=== PATIENT | female | born 1960 | race Caucasian/White ===

== ENCOUNTER → 2020-04-24 13:23 | Outpatient (CLI) | payer MEDICAID, SELFPAY ==
[2020-04-24 13:41] LABS: Basophils # 0.1 K/mm3 (0-0.2); Basophils % 0.8 % (0.1-2.0); Eosinophils # 0.2 K/mm3 (0.0-0.4); Hematocrit 42.6 % (37.0-47.0); Hemoglobin 14.3 g/dL (12.2-16.2); Lymphocytes # 3.5 K/mm3 (0.7-4.5); Lymphocytes % 42.1 % (10-50); Mean Corpuscular HGB Conc 33.6 g/dL (31.8-35.4); Mean Corpuscular Hemoglobin 31.5 pg (27.0-31.2); Mean Corpuscular Volume 93.9 fl (81-99); Mean Platelet Volume 8.5 fl (7.4-10.4); Monocytes # 0.5 K/mm3 (0.1-1.0); Monocytes % 6.5 % (1.7-9.3); Neutrophils % 48.5 % (37.0-80.0); Platelet Count 313 K/mm3 (142-424); Red Blood Count 4.54 M/mm3 (4.20-5.40); Red Cell Distribution Width 14.1 % (11.5-17.5); White Blood Count 8.3 K/mm3 (4.8-10.8)
[2020-04-24 14:05] LABS: Alanine Aminotransferase 29 U/L (12-78); Albumin Level 4.7 g/dl (3.5-5.0); Albumin/Globulin Ratio 1.2 (1.1-1.8); Alkaline Phosphatase 93 U/L (38-126); Anion Gap 15.1 mEq/L (5-15); Aspartate Amino Transferase 35 U/L (14-36); Bilirubin,Total 0.4 mg/dl (0.2-1.3); Blood Urea Nitrogen 20 mg/dl (7-17); Calcium 10.1 mg/dl (8.4-10.2); Carbon Dioxide 26 mmol/L (22.0-30.0); Chloride 102 mmol/L (98-107); Chol/HDL Ratio 4.9 (1-3.5); Cholesterol 317 mg/dl (140-200); Estimated Glomerular Filt Rate 74 ml/min (>60); GFR (African American) 89 ML/MIN (>60); Glucose 107 mg/dl (74-100); HDL Cholesterol 65 mg/dl (40-60); Potassium 5.1 mmoL/L (3.5-5.1); Sodium 138 mmol/L (136-145); Total Protein,Serum 8.7 g/dl (6.3-8.2); Triglycerides 313 mg/dl (30-150); VLDL Cholesterol 63 mg/dL (0-40)
[2020-04-24 14:14] LABS: Direct LDL Cholesterol 138.99 mg/dL (100-129)
[2020-04-24 14:20] LABS: T4 (Thyroxine) 7.8 ug/dl (5.53-11.0)
[2020-04-24 14:22] LABS: Phenytoin (Dilantin) < 3.0 ug/ml (10-20)
[2020-04-24 14:33] LABS: Thyroid Stimulating Hormone 3.05 uIU/mL (0.465-4.68)
[2020-04-24 17:31] LABS: Hemoglobin A1C 5.9 % (4.0-6.0)
== END ==
PROVIDERS: Visit Provider Family Medicine
DX: E11.9 Type 2 diabetes mellitus without complications (principal); G40.909 Epilepsy, unspecified, not intractable, without status epilepticus
CPT/HCPCS: 80053; 80061; 80185; 83036; 84436; 84443; 85025

== ENCOUNTER 2020-07-26 15:14 | Observation (INO) | payer MEDICAID, SELFPAY ==
--- NOTE | 2020-07-26 15:28 | PC.NURSE ---
Pt arrived to the floor at this time.
[2020-07-26 15:39] VITALS: BP 149/91; PULSE 94; RESP 18; TEMP 37.1; O2SAT 99; BMI 38.2
--- NOTE | 2020-07-26 16:11 | CT_ITS ---
PROCEDURE: CT ABDOMEN PELVIS WO/W CON CLINICAL INDICATION: abdominal pain Lower abdominal pain, vomiting blood, nausea vomiting and diarrhea COMPARISON: No exams were available for comparison TECHNIQUE: IV Contrast: 75ML Isovue 370 Oral Contrast None Axial images obtained with sagittal and coronal reformats. All CT scans at the facility use one or more dose reduction, viz: automated exposure control, ma/kV adjustment per patient size (including targeted exams where dose is matched to indication, i.e. head), or iterative reconstruction technique. FINDINGS: Motion artifact somewhat limits optimal evaluation. There is a moderate-sized hiatal hernia. There is mild thickening of the distal esophagus. Hepatic steatosis. There are some scattered areas of focal fatty sparing. No renal or ureteral calculi. There are right-sided parapelvic renal cyst. The spleen, adrenal glands, and pancreas show no acute finding. No intestinal obstruction or free air. No evidence of appendicitis or diverticulitis. Post hysterectomy change. No acute bony findings. IMPRESSION: No acute finding. Hiatal hernia Fatty liver Dictated by: Manuel Drew MD 07/27/2020 06:44 Manuel Drew MD in [facility] 07/27/2020 06:44
[2020-07-26 16:25] LABS: Adenovirus,PCR Not Detected (NotDetected); Bordetella Pertussis Not Detected (NotDetected); Chlamydophila Pneumoniae, PCR Not Detected (NotDetected); Coronavirus 19, PCR Not Detected (NotDetected); Coronavirus 229E Not Detected (NotDetected); Coronavirus NL63 Not Detected (NotDetected); Coronavirus OC43 Not Detected (NotDetected); Coronovirus HKU1,PCR Not Detected (NotDetected); Human Metapneumovirus Not Detected (NotDetected); Influenza A, PCR Not Detected (NotDetected); Influenza AH1, 2009 Not Detected (NotDetected); Influenza AH1, PCR Not Detected (NotDetected); Influenza AH3,PCR Not Detected (NotDetected); Influenza B, PCR Not Detected (NotDetected); Mycoplasma Pneumoniae, PCR Not Detected (NotDetected); Parainfluenza 1, PCR Not Detected (NotDetected); Parainfluenza 2, PCR Not Detected (NotDetected); Parainfluenza 3, PCR Not Detected (NotDetected); Parainfluenza 4, PCR Not Detected (NotDetected); Respiratory Syncytial Virus Not Detected (NotDetected); Rhinovirus/Enterovirus Not Detected (NotDetected)
[2020-07-26 16:43] LABS: Basophils # 0.1 K/mm3 (0-0.2); Basophils % 0.6 % (0.1-2.0); Eosinophils # 0.2 K/mm3 (0.0-0.4); Eosinophils % 2.2 % (0.1-12.0); Hematocrit 35.8 % (37.0-47.0); Hemoglobin 11.5 g/dL (12.2-16.2); Lymphocytes # 3.6 K/mm3 (0.7-4.5); Lymphocytes % 35.7 % (10-50); Mean Corpuscular HGB Conc 32.3 g/dL (31.8-35.4); Mean Corpuscular Hemoglobin 29.7 pg (27.0-31.2); Mean Corpuscular Volume 92.1 fl (81-99); Mean Platelet Volume 8.4 fl (7.4-10.4); Monocytes # 0.5 K/mm3 (0.1-1.0); Monocytes % 5.2 % (1.7-9.3); Neutrophils # 5.7 K/mm3 (1.8-7.8); Neutrophils % 56.2 % (37.0-80.0); Platelet Count 300 K/mm3 (142-424); Red Blood Count 3.89 M/mm3 (4.20-5.40); Red Cell Distribution Width 13.3 % (11.5-17.5); White Blood Count 10.1 K/mm3 (4.8-10.8)
[2020-07-26 16:51] LABS: Chloride 108 mmol/L (98-107); Sodium 139 mmol/L (136-145)
[2020-07-26 16:52] LABS: Potassium 4.2 mmoL/L (3.5-5.1)
[2020-07-26 16:54] LABS: Alanine Aminotransferase 29 U/L (12-78); Albumin Level 4.2 g/dl (3.5-5.0); Albumin/Globulin Ratio 1.2 (1.1-1.8); Alkaline Phosphatase 84 U/L (38-126); Anion Gap 9.2 mEq/L (5-15); Aspartate Amino Transferase 36 U/L (14-36); Bilirubin,Total 0.4 mg/dl (0.2-1.3); Blood Urea Nitrogen 16 mg/dl (7-17); Calcium 9.3 mg/dl (8.4-10.2); Carbon Dioxide 26 mmol/L (22.0-30.0); Creatinine Clearance Estimated 131 mL/min (50-200); Estimated Glomerular Filt Rate 86 ml/min (>60); GFR (African American) 104 ML/MIN (>60); Globulin 3.4 g/dL (1.3-3.2); Glucose 98 mg/dl (74-100); Lipase 53 U/L (23-300); Total Protein,Serum 7.6 g/dl (6.3-8.2)
[2020-07-26 16:57] LABS: Prothrombin Time 10.7 seconds (10.1-12.5)
--- NOTE | 2020-07-26 18:54 | PC.NURSE ---
PT IS A DIRECT ADMIT THIS SHIFT. SHE HAS HAD NO VOMITING EPISODES OR C/O ABD PAIN. CALL LIGHT WITHIN REACH. VSS. WILL CONT. TO MONITOR.
--- NOTE | 2020-07-26 19:14 | HMH.HP ---
*Admission Date: 07/26/20 *Chief complaint: abdominal pain and hemetemesis *History of present illness: Patient is a 60-year-old white female, presented to the office earlier today with a history of abdominal pain and hematemesis. She relays nausea, lower abdominal pain, worsening over the last few days. She relays a scant amount of hematemesis with vomiting. There is no melanotic or black tarry stool. She does have a history of gastric ulcers, remote. Patient's regimen includes Plavix. She was placed on this by her spring former hand, Dr. Crisostomo after work-up for a discolored toe. The ischemic discoloration has since resolved. At that point during her work-up she was also cathed. No stents were deployed. Patient has seizures, these have been quiescent. Given her degree of abdominal discomfort in the office and bleeding I elected to admit her for further evaluation. We will get a CT of the abdomen pelvis, blood count, and will ask for gastro to see her in the morning. Will keep her n.p.o. and placed on IV Protonix. [facility] History Medical History: Reports:: Asthma, Chronic Obstructive Pulmonary Disease (COPD), Coronary Artery Disease, Diabetes Mellitus Type 2, Gastroesophageal Reflux Disease(GERD), Hiatal Hernia, Hyperlipidemia, Hypertension, Myocardial Infarction, Renal Disease, Seizures Denies:: Cancer, Diabetes Mellitus Type 1, MRSA *Have you ever received a pneumonia vaccine?: No *Have you received a flu vaccine this season?: No Other Medical History: Reports: Anemia, Arthritis Laterality Cases: Bilateral: Carpal Tunnel Release Other Surgeries: Yes: Cardiac Catheterization, Colonoscopy, Hysterectomy-Partial Amputation: No - *Social History Smoking Status: Never smoker Alcohol Intake: never *Occupational Status:: unemployed Housing: house Household Members: spouse *Travel in the last 8 weeks: None Family Hx:: Diabetes, Heart Attack, Hyperlipidemia, Hypertension Review of Systems - Constitutional Reports anorexia, Reports fatigue, Reports lack of energy, Reports weakness - Eyes Denies change in vision - ENT Reports bad breath - *Cardiovascular Denies chest pain - *Respiratory Denies chest congestion - *Gastrointestinal Reports abdominal pain, Reports change in stools, Reports vomiting blood, Reports nausea, Reports vomiting, Denies bright, red blood in stools, Denies black, tarry stools - *Genitourinary Reports absent period - *Musculoskeletal Reports muscle weakness - Integumentary/Breasts Denies yellowing of the skin - *Neurologic Reports seizure-like activity, Denies abnormal speech, Denies behavioral changes - Psychiatric Denies confusion - Endocrine Denies increased thirst, Denies increased hunger - Hematologic/Lymphatic Reports easy bruising, Denies easy bleeding - Allergic/Immunologic Denies hives Meds Home Medications Medication Instructions Recorded Confirmed Type budesonide-formoterol HFA 160 2 puff INHALATION BID 04/24/20 07/26/20 History mcg-4.5 mcg/actuation aerosol inhaler clopidogrel 75 mg tablet 75 mg PO DAILY 04/24/20 07/26/20 History fluticasone furoate 200 1 inh INHALATION DAILY 04/24/20 07/26/20 History mcg-vilanterol 25 mcg/dose inhalation powder nitroglycerin 0.4 mg sublingual 0.4 mg SUBLINGUAL Q5-15M PRN 04/24/20 07/26/20 History tablet tramadol 50 mg tablet 50 mg PO DAILY PRN #30 tab 04/24/20 07/26/20 Rx Amlodipine Besylate [Amlodipine 10 mg PO DAILY 07/26/20 07/26/20 History 10mg Tab] Losartan Potassium [Cozaar 100mg 100 mg PO DAILY 07/26/20 07/26/20 History Tablets] Pantoprazole Sodium 40 mg PO DAILY 07/26/20 07/26/20 History Phenytoin Sodium Extended 100 mg PO TID 07/26/20 07/26/20 History [Dilantin] Ropinirole HCl 2 mg PO HS 07/26/20 07/26/20 History Rosuvastatin Calcium 20 mg PO HS 07/26/20 07/26/20 History levETIRAcetam [Levetiracetam] 750 mg PO BID 07/26/20 07/26/20 History Allergies Allergy/AdvReac Type Severity R
[2020-07-26 20:00] VITALS: BP 154/78; PULSE 86; RESP 20; TEMP 36.8; O2SAT 100
[2020-07-27] VITALS (11 sets, daily range): BP systolic 104–139; BP diastolic 58–79; PULSE 61–86; RESP 16–20; TEMP 36.4–36.8; O2SAT 93–99; BMI 38.5
--- NOTE | 2020-07-27 05:19 | PC.NURSE ---
Pt has rested well this shift. Has c/o pain x2 this shift. Medicated per jun. Pt has had a bed bath this AM. SHe is currently NPO. VSS. Lungs are CTA. BS active. She has tenderness to abdomen. 1+ edema noted to ankles. No other concerns. Call light within reach. Will continue to monitor.
[2020-07-27 07:50] LABS: MANUAL DIFFERENTIAL MANUAL DIFFERENTIAL (MANUAL DIFF)
[2020-07-27 07:55] LABS: Basophils # 0.1 K/mm3 (0-0.2); Basophils % 0.7 % (0.1-2.0); Eosinophils # 0.2 K/mm3 (0.0-0.4); Eosinophils % 2.5 % (0.1-12.0); Hemoglobin 11.8 g/dL (12.2-16.2); Lymphocytes # 3.2 K/mm3 (0.7-4.5); Lymphocytes % 37.3 % (10-50); Mean Corpuscular Volume 93.9 fl (81-99); Mean Platelet Volume 8.7 fl (7.4-10.4); Monocytes # 0.5 K/mm3 (0.1-1.0); Monocytes % 5.6 % (1.7-9.3); Neutrophils # 4.6 K/mm3 (1.8-7.8); Neutrophils % 53.8 % (37.0-80.0); Platelet Count 265 K/mm3 (142-424); Red Blood Count 3.94 M/mm3 (4.20-5.40); Red Cell Distribution Width 13.2 % (11.5-17.5); White Blood Count 8.5 K/mm3 (4.8-10.8)
--- NOTE | 2020-07-27 08:03 | P.CONPHA_ITS ---
[facility] Pharmacy VTE Monitoring - Patient Demographics Admission date: 07/26/20 Report Date: 07/27/20 Time: 08:03 Allergies/Adverse Reactions: Patient Allergies egg Allergy (Unknown, Verified 07/26/20 13:57) shellfish derived Allergy (Unknown, Verified 07/26/20 13:57) nut - unspecified Adverse Reaction (Severe, Verified 07/26/20 13:57) Unknown allergy reaction aspirin Adverse Reaction (Unknown, Verified 07/26/20 13:57) Penicillins Adverse Reaction (Unknown, Verified 07/26/20 13:57) Height: 1.57 m Weight: 94.801 kg Patient Problems: Current Active Problems Hematemesis (Acute) Abdominal pain (Acute) HLD (hyperlipidemia) (Chronic) Asthma (Chronic) Essential hypertension (Chronic) Seizure (Chronic) Peripheral vascular disease (Chronic) - VTE Risk Labs: VTE Related Lab Results Hgb 11.8 g/dL (12.2-16.2) L 07/27/20 06:41 Hct 37.0 % (37.0-47.0) 07/27/20 06:41 Plt Count 265 K/mm3 (142-424) 07/27/20 06:41 PT 10.7 seconds (10.1-12.5) 07/26/20 16:30 INR 0.90 (0.9-1.1) 07/26/20 16:30 BUN 16 mg/dl (7-17) 07/26/20 16:30 Creatinine 0.70 mg/dl (0.52-1.04) 07/26/20 16:30 Estimated Creat Clear 131 mL/min (50-200) 07/26/20 16:30 VTE Score: 8 VTE Risk Level: Moderate Risk - Prophylaxis VTE Prophylaxis Ordered?: Yes Types of VTE Prophylaxis: TEDS Knee High Location of Applied Device: Bilateral Lower Extremeties
[2020-07-27 08:14] LABS: Chloride 108 mmol/L (98-107); Potassium 4.2 mmoL/L (3.5-5.1); Sodium 137 mmol/L (136-145)
[2020-07-27 08:16] LABS: Alanine Aminotransferase 24 U/L (12-78); Aspartate Amino Transferase 29 U/L (14-36); Blood Urea Nitrogen 14 mg/dl (7-17); Creatinine Clearance Estimated 131 mL/min (50-200); Estimated Glomerular Filt Rate 86 ml/min (>60); GFR (African American) 104 ML/MIN (>60)
[2020-07-27 08:17] LABS: Albumin Level 3.6 g/dl (3.5-5.0); Albumin/Globulin Ratio 1.2 (1.1-1.8); Alkaline Phosphatase 80 U/L (38-126); Anion Gap 7.2 mEq/L (5-15); Bilirubin,Total 0.4 mg/dl (0.2-1.3); Calcium 8.9 mg/dl (8.4-10.2); Carbon Dioxide 26 mmol/L (22.0-30.0); Glucose 105 mg/dl (74-100); Total Protein,Serum 6.6 g/dl (6.3-8.2)
[2020-07-27 08:59] LABS: Eosinophils % 2 % (0-3); Lymphocytes % 34 % (10-50); Monocytes % 5 % (2-9); Neutrophils % 59 % (42-76); Platelet Estimate Normal; RBC Morphology Normal; Total Cells Counted 100
--- NOTE | 2020-07-27 10:43 | HMH.PHAINT ---
MEDICATION RECONCILIATION COMPLETED USING PHYSICIAN OFFICE LIST
--- NOTE | 2020-07-27 13:02 | PC.NURSE ---
Pt down to surgery at this time for EGD.
--- NOTE | 2020-07-27 13:52 | HMH.PROC ---
[facility] Procedure Note Procedure Note:: Upper Endoscopy Procedure Report: Esophagogastroduodenoscopy with cold biopsies Endoscopost: Misha Alejandre II, MD Referring Physician: Clif Portillo MD Date of Procedure: July 27, 2020 Equipment: Olympus GIF 190 standard upper endoscope Sedation: MAC sedation Indications: Mrs. Tena is a 60-year-old female with hematemesis since Thursday (3 days ago). The patient reports some epigastric and lower abdominal pain and discomfort with bloating. She has had nausea and vomiting. She was taking Plavix. She is a diabetic. She reports no use of NSAIDs. She has had no melena or hematochezia. She has no history of liver disease. Her hemoglobin and hematocrit yesterday were 11.[address] scan of the abdomen yesterday showed a moderate sized hiatal hernia and some thickening of the distal esophagus. EGD is performed for further evaluation. Procedure: Prior to the procedure, a history and physical exam was performed, and patient's medications and allergies were reviewed. The risks, benefits and alternatives of the sedation and procedure were discussed with the patient. All questions were answered and informed consent was obtained. The patient was brought to the procedure room. Patient identification and proposed procedure were verified by the physician and the nurse. The patient was placed in a left lateral decubitus position and the scope was passed under direct vision. Throughout the procedure, the patient's blood pressure, pulse, and oxygen saturations were monitored continuously. The upper GI endoscopy was accomplished without difficulty. The patient tolerated the procedure well. Findings: The scope was passed directly into the upper esophagus and advanced to the third portion of the duodenum. The post bulbar duodenum and duodenal bulb were normal with normal mucosa and conniventes. The scope was withdrawn through a normal duodenal bulb and pylorus into the stomach. There was some mild linear reactive gastropathy of the antrum and body of the stomach. Cold biopsies were obtained from the antrum and lesser curvature. There was very mild gastritis of the body and fundus. Upon retroflexion there was a moderate sized 4 to 5 cm hiatal hernia with linear Derrick's erosions. The scope was then withdrawn into the esophagus. There appeared to be a healing Fariha-Salmon tear along the lesser curvature near the GE junction. There was no evidence of reflux esophagitis or Aquino's. There were tertiary contractions and evidence of moderate esophageal dysmotility. The remainder of the esophageal mucosa was normal. Impression: 1. Healing Fariha-Salmon tear 2. Moderate sized hiatal hernia (4 to 5 cm) with linear Derrick's erosions 3. Nonerosive GERD with moderate esophageal dysmotility 4. Mild reactive gastropathy and mild chronic gastritis Plan: I will follow-up the biopsies. 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 I would consider adding promotility therapy (metoclopramide) to her PPI therapy. I will begin to advance her diet.
--- NOTE | 2020-07-27 14:18 | HMH.DCSUM ---
General - General Admission date:: 07/26/20 Discharge date: 07/27/20 HPI HPI: Patient is a 60-year-old white female, presented to the office earlier today with a history of abdominal pain and hematemesis. She relays nausea, lower abdominal pain, worsening over the last few days. She relays a scant amount of hematemesis with vomiting. There is no melanotic or black tarry stool. She does have a history of gastric ulcers, remote. Patient's regimen includes Plavix. She was placed on this by her senior environmental scientist, Dr. Crisostomo after work-up for a discolored toe. The ischemic discoloration has since resolved. At that point during her work-up she was also cathed. No stents were deployed. Patient has seizures, these have been quiescent. Given her degree of abdominal discomfort in the office and bleeding I elected to admit her for further evaluation. We will get a CT of the abdomen pelvis, blood count, and will ask for gastro to see her in the morning. Will keep her n.p.o. and placed on IV Protonix. Hospital Course Hospital Course: Laboratory Tests 07/26/20 07/26/20 07/26/20 16:20 16:30 16:30 WBC 10.1 RBC 3.89 L Hgb 11.5 L Hct 35.8 L MCV 92.1 MCH 29.7 MCHC 32.3 RDW 13.3 Plt Count 300 MPV 8.4 Neut % (Auto) 56.2 Lymph % (Auto) 35.7 [place] % (Auto) 5.2 Eos % (Auto) 2.2 Baso % (Auto) 0.6 Neut # (Auto) 5.7 Lymph # (Auto) 3.6 [place] # (Auto) 0.5 Eos # (Auto) 0.2 Baso # (Auto) 0.1 Total Counted Neutrophils % (Manual) Lymphocytes % (Manual) Monocytes % (Manual) Eosinophils % (Manual) Platelet Estimate RBC Morphology PT 10.7 INR 0.90 Sodium Potassium Chloride Carbon Dioxide Anion Gap BUN Creatinine Estimated Creat Clear Estimated GFR Est GFR ( Amer) Glucose Calcium Total Bilirubin AST ALT Alkaline Phosphatase Total Protein Albumin Globulin Albumin/Globulin Ratio Lipase Chlamy pneumoniae PCR Not detected Adenovirus (PCR) Not detected B. pertussis DNA (PCR) Not detected Coronavirus OC43 (PCR) Not detected Coronavirus HKU1 (PCR) Not detected Coronavirus 229E (PCR) Not detected SARS-CoV-2 (PCR) Not detected Coronavirus NL63 (PCR) Not detected Human Metapneumovir PCR Not detected Influenza A (H1) PCR Not detected Influ A (H1N1/09) PCR Not detected Influenza A (H3) PCR Not detected Influenza Type A (PCR) Not detected Influenza Type B (PCR) Not detected M. pneumoniae (PCR) Not detected Parainfluenza 1 (PCR) Not detected Parainfluenza 2 (PCR) Not detected Parainfluenza 3 (PCR) Not detected Parainfluenza 4 (PCR) Not detected RSV (PCR) Not detected Entero/Rhino (PCR) Not detected 07/26/20 07/27/20 07/27/20 16:30 06:41 06:41 WBC 8.5 RBC 3.94 L Hgb 11.8 L Hct 37.0 MCV 93.9 MCH 30.0 MCHC 32.0 RDW 13.2 Plt Count 265 MPV 8.7 Neut % (Auto) 53.8 Lymph % (Auto) 37.3 [place] % (Auto) 5.6 Eos % (Auto) 2.5 Baso % (Auto) 0.7 Neut # (Auto) 4.6 Lymph # (Auto) 3.2 [place] # (Auto) 0.5 Eos # (Auto) 0.2 Baso # (Auto) 0.1 Total Counted 100 Neutrophils % (Manual) 59 Lymphocytes % (Manual) 34 Monocytes % (Manual) 5 Eosinophils % (Manual) 2 Platelet Estimate Normal RBC Morphology Normal PT INR Sodium 139 137 Potassium 4.2 4.2 Chloride 108 H 108 H Carbon Dioxide 26 26 Anion Gap 9.2 7.2 BUN 16 14 Creatinine 0.70 0.70 Estimated Creat Clear 131 131 Estimated GFR 86 86 Est GFR ( Amer) 104 104 Glucose 98 105 H Calcium 9.3 8.9 Total Bilirubin 0.4 0.4 AST 36 29 ALT 29 24 Alkaline Phosphatase 84 80 Total Protein 7.6 6.6 Albumin 4.2 3.6 D Globulin 3.4 H 3.0 Albumin/Globulin Ratio 1.2 1.2 Lipase 53 Chlamy pneumoniae PCR Adenovirus (PCR)
--- NOTE | 2020-07-27 15:00 | HMH.ANESCL ---
[facility] Anesthesia Checklist - Structural Data Admitted From: Inpatient Planned Operative Procedure/s: egd Consent for Planned Operative Procedure(s) Verified: Yes - Airway Assessment C-Spine Mobility Assessed: Yes TMJ Mobility Assessed: Yes Dentition: Poor Dentition - Neurological Assessment Level of Consciousness: Awake, Alert, Appropriate - Anesthesia Plan Anesthesia Risk discussed: Yes Anesthesia Plan: Verified ASA Class: III Anesthesia Type: MAC [facility] History I have reviewed the patient's past medical history: Yes Medical History: Reports:: Asthma, Chronic Obstructive Pulmonary Disease (COPD), Coronary Artery Disease, Diabetes Mellitus Type 2, Gastroesophageal Reflux Disease(GERD), Hiatal Hernia, Hyperlipidemia, Hypertension, Myocardial Infarction, Renal Disease, Seizures Denies:: Cancer, Diabetes Mellitus Type 1, MRSA *Have you ever received a pneumonia vaccine?: No *Have you received a flu vaccine this season?: No Other Medical History: Reports: Anemia, Arthritis Anesthesia experience/problems:: none Laterality Cases: Bilateral: Carpal Tunnel Release Other Surgeries: Yes: Cardiac Catheterization, Colonoscopy, Hysterectomy-Partial Amputation: No - *Social History Smoking Status: Never smoker Alcohol Intake: never Substance Use Type: denies use *Occupational Status:: unemployed Housing: house Household Members: spouse *Travel in the last 8 weeks: None Family Hx:: Diabetes, Heart Attack, Hyperlipidemia, Hypertension
== END 2020-07-27 16:30 | disposition home or self-care (01) ==
PROVIDERS: Internal Medicine Gastroenterology; Admitting Provider Family Medicine; PCP Family Medicine; Visit Provider Family Medicine
PROC: 0DJ08ZZ Inspection of Upper Intestinal Tract, Via Natural or Artificial Opening Endoscopic (ICD-10-PCS; CPT 43235; principal; 2020-07-27 14:00)
DX: K92.0 Hematemesis (principal); R10.30 Lower abdominal pain, unspecified; I10 Essential (primary) hypertension; E78.5 Hyperlipidemia, unspecified; K21.9 Gastro-esophageal reflux disease without esophagitis; E11.9 Type 2 diabetes mellitus without complications; I25.10 Atherosclerotic heart disease of native coronary artery without angina pectoris; J44.9 Chronic obstructive pulmonary disease, unspecified; I25.2 Old myocardial infarction; M19.90 Unspecified osteoarthritis, unspecified site; Z88.6 Allergy status to analgesic agent; Z91.012 Allergy to eggs; Z88.0 Allergy status to penicillin; Z91.013 Allergy to seafood; I73.9 Peripheral vascular disease, unspecified; R56.9 Unspecified convulsions; K22.6 Gastro-esophageal laceration-hemorrhage syndrome; K44.9 Diaphragmatic hernia without obstruction or gangrene; K31.9 Disease of stomach and duodenum, unspecified; K29.50 Unspecified chronic gastritis without bleeding
CPT/HCPCS: 43239; 36415; 74178; 80053; 83690; 85007; 85014; 85018; 85025; 85048; 85049; 85610; 87581; 87633; 87798; G0378; J2405; Q9967

== ENCOUNTER → 2020-07-26 17:20 | Outpatient (CLI) | payer MEDICAID, SELFPAY | PROVIDERS: Visit Provider Family Medicine | DX: M54.9 Dorsalgia, unspecified (principal) | CPT/HCPCS: 87086 ==

== ENCOUNTER → 2020-12-07 09:02 | Outpatient (CLI) | payer MEDICAID, SELFPAY ==
--- NOTE | 2020-12-07 09:11 | MR_ITS ---
PROCEDURE: MR HEAD/BRAIN WO/W CON CLINICAL INDICATION: Recurrent test seizures COMPARISON: No exams were available for comparison TECHNIQUE: Routine multiplanar multi echo sequences are performed without and with gadolinium enhancement. FINDINGS: No midline shift, mass effect, intracranial hemorrhage, or hydrocephalus. The cerebellopontine angles, cerebellum, and brainstem have an unremarkable appearance. There is no evidence of restricted diffusion. No evidence of acute infarction. The hemicranium has a asymmetric appearance somewhat flattened on the left posteriorly. No abnormal white matter signal intensity. No enhancing lesions are evident. The hippocampal gyri are unremarkable in the temporal horns are symmetric. The pituitary, optic chiasm, corpus callosum, and craniocervical junction have an unremarkable appearance. Mild mucosal thickening involves the floor of the left maxillary sinus. There is a small amount fluid in the mastoid sinuses IMPRESSION: No acute intracranial findings. Slight asymmetry in the left hemicranium Mild bilateral mastoid sinus disease Dictated by: Manuel Drew MD 12/07/2020 13:39 Manuel Drew MD in [place] 12/07/2020 13:39
[2020-12-07 09:39] LABS: Basophils # 0.1 K/mm3 (0-0.2); Basophils % 1.4 % (0.1-2.0); Eosinophils # 0.3 K/mm3 (0.0-0.4); Hematocrit 39.6 % (37.0-47.0); Lymphocytes # 4.4 K/mm3 (0.7-4.5); Lymphocytes % 49.8 % (10-50); Mean Corpuscular HGB Conc 32.7 g/dL (31.8-35.4); Mean Corpuscular Hemoglobin 29.4 pg (27.0-31.2); Mean Platelet Volume 9.6 fl (7.4-10.4); Monocytes # 0.5 K/mm3 (0.1-1.0); Monocytes % 5.2 % (1.7-9.3); Neutrophils # 3.6 K/mm3 (1.8-7.8); Neutrophils % 40.6 % (37.0-80.0); Platelet Count 302 K/mm3 (142-424); Red Cell Distribution Width 13.9 % (11.5-17.5); White Blood Count 8.8 K/mm3 (4.8-10.8)
[2020-12-07 09:47] LABS: Chloride 106 mmol/L (98-107); Sodium 142 mmol/L (136-145)
[2020-12-07 09:50] LABS: Blood Urea Nitrogen 16 mg/dl (7-17); Calcium 8.9 mg/dl (8.4-10.2); Carbon Dioxide 27 mmol/L (22.0-30.0); Estimated Glomerular Filt Rate 86 ml/min (>60); GFR (African American) 104 ML/MIN (>60); Glucose 113 mg/dl (74-100)
[2020-12-07 10:26] LABS: Ferritin 21.8 ng/ml (11.1-264)
[2020-12-07 10:49] LABS: Phenytoin (Dilantin) < 3.0 ug/ml (10-20)
== END ==
PROVIDERS: PCP Family Medicine; Visit Provider Specialist
DX: G40.909 Epilepsy, unspecified, not intractable, without status epilepticus (principal); G25.81 Restless legs syndrome; Z51.81 Encounter for therapeutic drug level monitoring
CPT/HCPCS: 36415; 70553; 80048; 80177; 80185; 82728; 85025; 95816; A9576

== ENCOUNTER 2021-02-06 18:34 | Emergency (ER) | payer MEDICAID, SELFPAY ==
[2021-02-06 18:35] VITALS: BP 160/84; PULSE 104; RESP 16; TEMP 36.6; O2SAT 99; BMI 38.9
[2021-02-06 20:09] LABS: Basophils # 0.1 K/mm3 (0-0.2); Basophils % 0.8 % (0.1-2.0); Eosinophils # 0.2 K/mm3 (0.0-0.4); Eosinophils % 1.3 % (0.1-12.0); Hematocrit 42.7 % (37.0-47.0); Hemoglobin 13.4 g/dL (12.2-16.2); Lymphocytes # 4.7 K/mm3 (0.7-4.5); Lymphocytes % 41.5 % (10-50); Mean Corpuscular HGB Conc 31.3 g/dL (31.8-35.4); Mean Corpuscular Hemoglobin 30.1 pg (27.0-31.2); Mean Corpuscular Volume 96.1 fl (81-99); Mean Platelet Volume 8.2 fl (7.4-10.4); Monocytes # 0.6 K/mm3 (0.1-1.0); Monocytes % 5.4 % (1.7-9.3); Neutrophils # 5.8 K/mm3 (1.8-7.8); Platelet Count 370 K/mm3 (142-424); Red Blood Count 4.44 M/mm3 (4.20-5.40); Red Cell Distribution Width 13.6 % (11.5-17.5); White Blood Count 11.4 K/mm3 (4.8-10.8)
[2021-02-06 20:14] LABS: Chloride 104 mmol/L (98-107); Sodium 140 mmol/L (136-145)
[2021-02-06 20:17] LABS: Alanine Aminotransferase 22 U/L (12-78); Alkaline Phosphatase 104 U/L (38-126); Amylase 61 U/L (30-110); Aspartate Amino Transferase 31 U/L (14-36); Bilirubin,Total 0.2 mg/dl (0.2-1.3); Blood Urea Nitrogen 17 mg/dl (7-17); Carbon Dioxide 27 mmol/L (22.0-30.0); Creatinine Clearance Estimated 134 mL/min (50-200); Estimated Glomerular Filt Rate 86 ml/min (>60); GFR (African American) 104 ML/MIN (>60)
[2021-02-06 20:18] LABS: Albumin Level 4.4 g/dl (3.5-5.0); Albumin/Globulin Ratio 1.1 (1.1-1.8); Calcium 9.5 mg/dl (8.4-10.2); Globulin 4.1 g/dL (1.3-3.2); Glucose 98 mg/dl (74-100); Lipase 89 U/L (23-300); Total Protein,Serum 8.5 g/dl (6.3-8.2)
[2021-02-06 20:23] LABS: C-Reactive Protein 6.9 mg/L (0-4)
--- NOTE | 2021-02-06 20:24 | CT_ITS ---
PROCEDURE INFORMATION: Exam: CT Abdomen And Pelvis With Contrast Exam date and time: 02/06/2021 8:24 PM Age: 60 years old Clinical indication: Patient HX: PT has known hiatal hernia, vomiting for 1 day, pain in area of hernia TECHNIQUE: Imaging protocol: Computed tomography of the abdomen and pelvis with contrast. Radiation optimization: All CT scans at this facility use at least one of these dose optimization techniques: automated exposure control; mA and/or kV adjustment per patient size (includes targeted exams where dose is matched to clinical indication); or iterative reconstruction. Contrast material: ISOVUE; Contrast volume: 75 ml; Contrast route: IV; COMPARISON: CT ABDOMEN PELVIS WO/W CON 07/26/2020 7:43 PM FINDINGS: Lungs: No mass/infiltrate at either lung base. No pleural effusion. Liver: Mild hepatomegaly. There is diminished attenuation throughout the substance of the liver, compatible with hepatic steatosis. No evidence of a patent mass. No intrahepatic biliary dilitation. No changes since 07/26/2020. Gallbladder and bile ducts: The gallbladder is surgically absent. No evidence of extrahepatic biliary dilatation. Pancreas: Normal. No ductal dilation. Spleen: Normal. No splenomegaly. Adrenal glands: Normal. No mass. Kidneys and ureters: Normal. No hydronephrosis. Stomach and bowel: Again, there is a moderate to large hiatal hernia. Overall size of the hernia is not appreciably changed when compared with prior examination, taking into account differences in technique. No obstruction. No mucosal thickening. Small bowel mesentery is normal. Appendix: Unremarkable. Intraperitoneal space: Unremarkable. No free air. No significant fluid collection. Vasculature: Atheromatous calcification of the aorta and iliac arteries. No abdominal aortic aneurysm. Lymph nodes: Unremarkable. No enlarged lymph nodes. Urinary bladder: Unremarkable as visualized. Reproductive: Hysterectomy has been performed. Bones/joints: There are degenerative changes noted within the lumbar spine. No acute fracture. Soft tissues: Unremarkable. IMPRESSION: 1. Overall size of the moderate to large hiatal hernia is unchanged when compared with prior examination of 07/26/2020. 2. Cholecystectomy and hysterectomy has been performed. 3. Hepatic steatosis again identified. 4. No evidence of acute process within the abdomen or pelvis.
[2021-02-06 20:47] LABS: Erythrocyte Sedimentation Rate 14 mm/hr (0-30)
--- NOTE | 2021-02-06 21:25 | HMH.EDNVD ---
ED Disposition Clinical Impression: Hiatal hernia Hematemesis Qualifiers: Nausea presence: with nausea Qualified Code(s): K92.0 - Hematemesis Disposition: Home, Self-Care Condition on Discharge: Good Instructions: DI for Nausea -- Adult Additional Instructions: see pcp for follow up and return as needed Referrals: Gavin Portillo MD [Primary Care Provider] - - Critical Care Critical Care Time: No Attestation: On 02/06/21, the high probability of a clinically significant, sudden or life threatening deterioration of the following system(s) required my full and direct attention, intervention and personal management. The time I documented below is in addition to time spent performing reported procedures but includes the following listed in this critical care notation. Medical Decision Making - Medical Records Medical records reviewed: Yes: I reviewed the patient's medical records. - Mukesh Inquiry Pt receiving controlled substance: No Vital Signs: 02/06/21 18:35 Temperature 97.9 F Temperature Source Oral Pulse Rate [Left] 104 H Respiratory Rate 16 Blood Pressure [Right Arm] 160/84 H Blood Pressure Mean [Right Arm] 109 02 Sat by Pulse Oximetry 99 Oxygen Delivery Method Room Air - Lab Data Lab results reviewed: Yes: I reviewed the patient's lab results. Lab Results 02/06/21 19:42: WBC 11.4 H, RBC 4.44, Hgb 13.4, Hct 42.7, MCV 96.1, MCH 30.1, MCHC 31.3 L, RDW 13.6, Plt Count 370, MPV 8.2, Neut % (Auto) 51.0, Lymph % (Auto) 41.5, [place] % (Auto) 5.4, Eos % (Auto) 1.3, Baso % (Auto) 0.8, Neut # (Auto) 5.8, Lymph # (Auto) 4.7 H, [place] # (Auto) 0.6, Eos # (Auto) 0.2, Baso # (Auto) 0.1, ESR 14 02/06/21 19:42: Sodium 140, Potassium 4.0, Chloride 104, Carbon Dioxide 27, Anion Gap 13.0, BUN 17, Creatinine 0.70, Estimated Creat Clear 134, Estimated GFR 86, Est GFR ( Amer) 104, Glucose 98, Calcium 9.5, Total Bilirubin 0.2, AST 31, ALT 22, Alkaline Phosphatase 104, C-Reactive Protein 6.9 H, Total Protein 8.5 H D, Albumin 4.4, Globulin 4.1 H, Albumin/Globulin Ratio 1.1, Amylase 61, Lipase 89 Result diagrams: 02/06/21 19:42 02/06/21 19:42 Orders (Tests/Meds): ED MEDICATIONS Generic Name Dose Route Start Last Admin Trade Name Freq PRN Reason Stop Dose Admin Sodium Chloride 1,000 mls @ 999 mls/hr 02/06/21 20:00 02/06/21 20:05 Sod Chlor 0.9% 1000ml Bag IV 02/06/21 21:00 999 mls/hr .Q1H1M CHEPE Administration Discontinued Medications Generic Name Dose Route Start Last Admin Trade Name Freq PRN Reason Stop Dose Admin Pantoprazole Sodium 80 mg/ 100 mls @ 100 mls/hr 02/06/21 19:58 02/06/21 20:05 Sodium Chloride IV 02/06/21 20:57 100 mls/hr ONCE ONE Administration Iopamidol 75 ml 02/06/21 20:46 02/06/21 20:47 Iopamidol-370 (76%);100ml Bottle IV 02/06/21 20:47 75 ml ONCE ONE Administration Ondansetron HCl 4 mg 02/06/21 19:58 02/06/21 20:05 Ondansetron 4mg/2ml Vial IV 02/06/21 19:59 4 mg ONCE ONE Administration Sodium Chloride 10 ml 02/06/21 20:46 02/06/21 20:47 Sodium Chloride 0.9% 10ml Syr (Rad Only) IV 02/06/21 20:47 10 ml ONCE ONE Administration ORDERS Category Date Time Status Occult Blood,Gastric Fluid Stat Lab 02/06/21 19:55 Ordered Urinalysis and Microscopic Stat Lab 02/06/21 19:55 Ordered - CT Data CT Scan: Abdomen, Pelvis Time Received: 22:[address] Reviewed: Yes: I have viewed the radiologist's interpretation Preliminary Findings: Abnormal (see report ) Medical Decision Narrative: stable exam and labs with hx of recent issue sin 08/08 Nausea/Vomiting/Diarrhea HPI - General Chief complaint: Nausea/Vomiting/Diarrhea Stated complaint: vomiting blood Time Seen by Provider: 02/06/21 20:00 Mode of Arrival: Family Vehicle Source of Information: Patient, Medical Record Limitations: No Limitations Description of Symptoms (Recalled from ER Triage Doc. by RN): pt has a hx of hernia causing vomiting. today pt states to have luz
[2021-02-06 22:09] VITALS: BP 160/84; PULSE 89; RESP 16; TEMP 36.6
== END 2021-02-06 22:17 | disposition home or self-care (01) ==
PROVIDERS: Emergency Provider Emergency Medicine; PCP Family Medicine
DX: K44.9 Diaphragmatic hernia without obstruction or gangrene (principal); R10.13 Epigastric pain; I25.10 Atherosclerotic heart disease of native coronary artery without angina pectoris; J44.9 Chronic obstructive pulmonary disease, unspecified; I10 Essential (primary) hypertension; E11.9 Type 2 diabetes mellitus without complications; K21.9 Gastro-esophageal reflux disease without esophagitis; I25.2 Old myocardial infarction; K92.0 Hematemesis
CPT/HCPCS: 74177; 80053; 82150; 83690; 85025; 85651; 86140; 99282; J2405; Q9967

== ENCOUNTER → 2022-04-16 14:44 | Outpatient (CLI) | payer MEDICAID, SELFPAY ==
--- NOTE | 2022-04-16 14:50 | XR_ITS ---
FINAL REPORT CLINICAL HISTORY: SOA FINDINGS: TWO-VIEW CHEST The heart size is normal. The mediastinum is normal. There is bronchial wall thickening consistent with bronchitis. Small hiatal hernia is identified. There is no pneumothorax. IMPRESSION: Findings consistent with bronchitis. Reviewed, Interpreted and Dictated by Scott Alfonso III, MD Transcribed by Rowena Agarwal Authenticated and . [facility]
== END ==
PROVIDERS: PCP Family Medicine; Visit Provider Nurse Practitioner Family
DX: R06.02 Shortness of breath (principal)
CPT/HCPCS: 71046

== ENCOUNTER → 2022-06-03 23:33 | Outpatient (CLI) | payer MEDICAID, SELFPAY ==
[2022-06-03 20:06] LABS: Anion Gap 12.5 mEq/L (5-15); Blood Urea Nitrogen 19 mg/dl (7-17); Carbon Dioxide 23 mmol/L (22.0-30.0); Chloride 106 mmol/L (98-107); Estimated Glomerular Filt Rate 64 ml/min (>60); GFR (African American) 78 ML/MIN (>60); Glucose 97 mg/dl (74-100); Potassium 4.5 mmoL/L (3.5-5.1); Sodium 137 mmol/L (136-145)
== END ==
PROVIDERS: PCP Family Medicine; Visit Provider Family Medicine
DX: K92.0 Hematemesis (principal)
CPT/HCPCS: 80048

== ENCOUNTER → 2022-07-04 22:29 | Outpatient (CLI) | payer MEDICAID, SELFPAY ==
[2022-07-04 18:34] LABS: Basophils # 0.1 K/mm3 (0-0.2); Basophils % 0.9 % (0.1-2.0); Eosinophils # 0.2 K/mm3 (0.0-0.4); Eosinophils % 1.9 % (0.1-12.0); Hematocrit 41.4 % (37.0-47.0); Hemoglobin 13.9 g/dL (12.2-16.2); Lymphocytes # 4.2 K/mm3 (0.7-4.5); Lymphocytes % 42.7 % (10-50); Mean Corpuscular HGB Conc 33.6 g/dL (31.8-35.4); Mean Corpuscular Hemoglobin 31.2 pg (27.0-31.2); Mean Corpuscular Volume 92.9 fl (81-99); Mean Platelet Volume 10.3 fl (7.4-10.4); Monocytes # 0.6 K/mm3 (0.1-1.0); Monocytes % 5.9 % (1.7-9.3); Neutrophils # 4.7 K/mm3 (1.8-7.8); Neutrophils % 48.5 % (37.0-80.0); Platelet Count 430 K/mm3 (142-424); Red Blood Count 4.46 M/mm3 (4.20-5.40); Red Cell Distribution Width 13.9 % (11.5-17.5); White Blood Count 9.8 K/mm3 (4.8-10.8)
[2022-07-04 18:51] LABS: Alanine Aminotransferase 23 U/L (12-78); Albumin Level 4.2 g/dl (3.5-5.0); Albumin/Globulin Ratio 1.3 (1.1-1.8); Alkaline Phosphatase 72 U/L (38-126); Anion Gap 13.8 mEq/L (5-15); Aspartate Amino Transferase 29 U/L (14-36); Bilirubin,Total 0.5 mg/dl (0.2-1.3); Blood Urea Nitrogen 17 mg/dl (7-17); Calcium 8.9 mg/dl (8.4-10.2); Carbon Dioxide 23 mmol/L (22.0-30.0); Chloride 103 mmol/L (98-107); Chol/HDL Ratio 5.2 (1-3.5); Cholesterol 287 mg/dl (140-200); Estimated Glomerular Filt Rate 64 ml/min (>60); GFR (African American) 77 ML/MIN (>60); Globulin 3.2 g/dL (1.3-3.2); Glucose 75 mg/dl (74-100); HDL Cholesterol 55 mg/dl (40-60); Potassium 4.8 mmoL/L (3.5-5.1); Sodium 135 mmol/L (136-145); Total Protein,Serum 7.4 g/dl (6.3-8.2); Triglycerides 340 mg/dl (30-150); VLDL Cholesterol 68 mg/dL (0-40)
[2022-07-04 18:53] LABS: Phenytoin (Dilantin) < 3.0 ug/ml (10-20)
[2022-07-04 19:00] LABS: Direct LDL Cholesterol 153.64 mg/dL (100-129)
[2022-07-04 19:21] LABS: Thyroid Stimulating Hormone 3.71 uIU/mL (0.465-4.68)
[2022-07-04 21:41] LABS: Hemoglobin A1C 5.9 % (4.0-6.0)
== END ==
PROVIDERS: PCP Family Medicine; Visit Provider Family Medicine
DX: E78.5 Hyperlipidemia, unspecified (principal); I10 Essential (primary) hypertension; R56.9 Unspecified convulsions; Z79.899 Other long term (current) drug therapy
CPT/HCPCS: 80053; 80061; 80185; 83036; 84443; 85025

== ENCOUNTER → 2022-10-27 23:34 | Outpatient (CLI) | payer MEDICAID, SELFPAY ==
[2022-10-27 19:27] LABS: Basophils # 0.1 K/mm3 (0-0.2); Basophils % 0.5 % (0.1-2.0); Eosinophils # 0.2 K/mm3 (0.0-0.4); Eosinophils % 1.7 % (0.1-12.0); Hematocrit 40.2 % (37.0-47.0); Hemoglobin 12.5 g/dL (12.2-16.2); Lymphocytes # 3.4 K/mm3 (0.7-4.5); Lymphocytes % 37.1 % (10-50); Mean Corpuscular HGB Conc 31.1 g/dL (31.8-35.4); Mean Corpuscular Hemoglobin 27.9 pg (27.0-31.2); Mean Corpuscular Volume 89.6 fl (81-99); Mean Platelet Volume 9.7 fl (7.4-10.4); Monocytes # 0.6 K/mm3 (0.1-1.0); Monocytes % 6.5 % (1.7-9.3); Neutrophils % 54.2 % (37.0-80.0); Platelet Count 417 K/mm3 (142-424); Red Blood Count 4.49 M/mm3 (4.20-5.40); Red Cell Distribution Width 14.4 % (11.5-17.5); White Blood Count 9.2 K/mm3 (4.8-10.8)
== END ==
PROVIDERS: PCP Family Medicine; Visit Provider Family Medicine
DX: K92.0 Hematemesis (principal)
CPT/HCPCS: 85025

== ENCOUNTER → 2022-12-02 10:23 | Outpatient (CLI) | payer MEDICAID, SELFPAY ==
--- NOTE | 2022-12-02 10:30 | CA_ITS ---
APPROVED REPORT Exam: Pharmacologic Technologist: Negrita Price, Ht: 5 ft 2 in Wt: 212 lbs BSA: 1.96 m2 HR: 80 bpm BP: 154/78 mmHg Rhythm: NSR Medical History Medications: Amlodipine,,,,, Phenytoin,,,,, Losartan,,,,, Pantoprazole,,,,, Duoneb,,,,, Ropinirole,,,,, SyMBICORT,,,,, Albuterol,,,,, KEPPRA,,,,, Nitroglycerin,,,,, CompAZINE,,,,, RoSUVASTATIN,,,,, Stress Test Details Test: LEXISCAN Reason for pharmacologic stress test: physical limitation. HR Resting HR: 80 bpm Max Heart Rate (APMHR): 160 bpm Max HR Achieved: 120 bpm Target HR (85% APMHR): 136 bpm % of APMHR: 75 Recovery HR: 106 bpm BP Resting BP: 154.0/78.0 mmHg Max BP: 158.0/89.0 mmHg Recovery BP: 157.0/73.0 mmHg ECG Resting ECG: Normal sinus rhythm Stress ECG: T wave changes in the inferolateral leads Arrhythmia: PVCs Clinical Exercise duration: 04:01 min Highest Stage Achieved: Exercise capacity: 1.0 METs Stress ECG Conclusion Symptoms: Dyspnea, chest pressure. Arrhythmias/Ectopy: PVCs ST-T Changes: New T-wave changes noted in the inferolateral leads following Lexiscan administration Conclusion: Lexiscan stress test suggestive of possible ischemia. Myoview images are reported separately. Test Summary REST . . . . . . . Resting REST 05:19 . . 80 . 154/ 78 . . Stage 1 . . . . . . . Myoview Injected Stage 1 01:00 . . 119 . . . . Stage 2 01:00 . . 119 . . . . Stage 3 01:00 . . 114 . 158/ 89 . . Stage 4 01:00 . . 111 . 147/ 81 . . Stage 4 01:01 . . 111 . 147/ 81 . Stop exercise at 04:01 RECOVERY 01:00 . . 109 . . . . RECOVERY 02:00 . . 106 . 146/ 83 . . RECOVERY 03:00 . . 105 . 146/ 83 . . RECOVERY 03:37 . . 108 . 157/ 73 . . Electronically signed by : Lottie Black, 12/02/2022 19:08:59
--- NOTE | 2022-12-02 10:30 | NM_ITS ---
APPROVED REPORT Exam: Nuclear Stress Test Indication: HTN, DM, HYPERLIPIDEMIA, FM HX., C.P., SOB, PALPITATIONS, SYNCOPE, FATIGUE Patient Location: Outpatient Stress Tech: Negrita Bradshaw [facility] Tech:Latoya Harrison, ARRT RT (R)(N)(M) Ht: 5 ft 2 in Wt: 212 lbs Bra Size: DD HR: 80 bpm BP: 154/78 mmHg BSA: 1.96 m2 Rhythm: NSR TID: 0.88 BMI: 38.7 History: HTN, DM, HYPERLIPIDEMIA, FM HX., C.P., SOB, PALPITATIONS, SYNCOPE, FATIGUE Procedure: Patient received 0.4 mg of intravenous Lexiscan, resting heart rate 80 bpm, resting blood pressure 154/78 mmHg, with Lexiscan maximum heart rate achieved was 118 bpm which is % of the maximum predicted heart rate and blood pressure was 158/89 mmHg. CHEST PRESSURE WITH LEXISCAN Cardiac Stress and Resting SPECT Images: Cardiac Stress and Resting SPECT images were obtained using technetium 99m Myoview 31.6 mCi stress and 10.65 mCi at rest. Resting and stress imaging in supine and prone positions demonstrate no evidence of fixed or reversible perfusion defects. Gated imaging demonstrates normal global and regional LV systolic function. LVEF is calculated at > 75% Conclusion: No evidence of fixed or reversible perfusion defects. Gated imaging demonstrates normal global and regional LV systolic function. LVEF is calculated at > 75% Electronically signed by : Lottie Black, 12/02/2022 19:10:25
== END ==
PROVIDERS: PCP Family Medicine; Visit Provider Family Medicine
DX: R06.02 Shortness of breath (principal); R07.89 Other chest pain
CPT/HCPCS: 78452; 93017; A9502; J2785

== ENCOUNTER 2022-12-10 08:55 | Day surgery (SDC) | payer MEDICAID, SELFPAY ==
[2022-11-21 10:08] VITALS: BMI 39.1
[2022-12-10] VITALS (7 sets, daily range): BP systolic 107–154; BP diastolic 74–95; PULSE 65–85; RESP 18; TEMP 36.1–36.3; O2SAT 96–99
--- NOTE | 2022-12-10 10:28 | P.PNANES_ITS ---
[facility] Disclaimer: The information contained in this section may have been updated after the patient was seen, as this information can be updated by other users. Medical History Carpal tunnel syndrome History of nausea Hypertension Seizure disorder Surgical History History of carpal tunnel release of both wrists History of foot operation History of foot surgery Hx of hysterectomy Family History Other Cancer of kidney Family history of cancer Family history of diabetes mellitus type II Family history of hypertension Family history of myocardial infarction Lung cancer Social History Smoking Status: Never smoker alcohol intake: never substance use type: denies use current occupational status: disabled Travel in the last 8 weeks: None household members: spouse housing: house lives independently: No marital status: education level: high school service: No alf: No caffeine: Yes do you feel safe at home: Yes victim of physical abuse: No victim of emotional abuse: No victim of sexual abuse: No would you like helpful sources: No [facility] Anesthesia Checklist Structural Data Planned Operative Procedure/s: EGD Anesthesia Plan Anesthesia Type: MAC
--- NOTE | 2022-12-10 10:29 | EXP.ANES.CKL ---
[facility] Disclaimer: The information contained in this section may have been updated after the patient was seen, as this information can be updated by other users. Medical History Carpal tunnel syndrome History of nausea Hypertension Seizure disorder Surgical History History of carpal tunnel release of both wrists History of foot operation History of foot surgery Hx of hysterectomy Family History Other Cancer of kidney Family history of cancer Family history of diabetes mellitus type II Family history of hypertension Family history of myocardial infarction Lung cancer Social History Smoking Status: Never smoker alcohol intake: never substance use type: denies use current occupational status: disabled Travel in the last 8 weeks: None household members: spouse housing: house lives independently: No marital status: education level: high school service: No penitentiary: No caffeine: Yes do you feel safe at home: Yes victim of physical abuse: No victim of emotional abuse: No victim of sexual abuse: No would you like helpful sources: No [facility] Anesthesia Checklist Patient Identification Patient Identification: Arm Band and Verbal (Name & ) Structural Data Admitted From: Home Planned Operative Procedure/s: EGD Consent for Planned Operative Procedure(s) Verified: Yes NPO Status Verified Time NPO: 00:00 Airway Assessment Mallampati Score:: Class III C-Spine Mobility Assessed: Yes TMJ Mobility Assessed: Yes Dentition: Poor Dentition Neurological Assessment Level of Consciousness: Awake Hx Seizures: No Numbness or tingling in extremities: No Anesthesia Plan Anesthesia Risk discussed: Yes Anesthesia Plan: Verified ASA Class: III Anesthesia Type: MAC
--- NOTE | 2022-12-10 11:03 | HMH.SCOPE ---
Procedure: Date: 12/10/22 Patient Date of :: 1960 Procedure Performed:: EGD Indications:: The patient is a 62 year old who presents for EGD evaluation of dysphagia. The patient has a hiatal hernia and reports that she is being evaluated at [facility] for possible hiatal hernia repair. Performing Provider:: Mike Leonardo MD Referring Provider:: Gavin Portillo MD Sedation:: See RN records Procedure:: The gastroscope was gently passed through the incisoral orifice into the oral cavity and under direct visualization the esophagus was intubated. The endoscope was passed down the esophagus, through the stomach, and into the duodenum. Color, texture, mucosa, and anatomy of the esophagus, stomach, and duodenum were carefully examined with the scope. Findings:: Oropharynx: normal Esophagus: Schatzki ring of the distal esophagus. Dilatation performed sequentially with 18-20 mm tts balloon. EG Junction: Measured at 31 cm Cardia: Moderate large hiatal hernia, 4-5 cm in size Fundus: normal Body: Minimal gastritis. Biopsies obtained Antrum: Minimal gastritis, linear erythema. Biopsies obtained. Focal area of heaped up mucosa, this may be an area of a previous ulcer. Biopsies obtained. Duodenal bulb: normal Duodenum (second and third portion): normal Impresssion: Schatzki ring Hiatal hernia Gastritis with gastric erythema Heaped up mucosa of antrum, possibly area of a previous ulcer Recommendations:: Await pathology results Avoid NSAIDs when possible Pantoprazole 40 mg once daily Complications:: None Estimated blood obtained (mL): 0 Colonoscopy Component Colonoscopy Component Was a colonoscopy performed during today's procedure?: No
== END 2022-12-10 12:05 | disposition home or self-care (01) ==
PROVIDERS: PCP Family Medicine; Visit Provider Internal Medicine
PROC: 0DJ08ZZ Inspection of Upper Intestinal Tract, Via Natural or Artificial Opening Endoscopic (ICD-10-PCS; CPT 43235; principal; 2022-12-10 10:00)
DX: K22.2 Esophageal obstruction (principal); K44.9 Diaphragmatic hernia without obstruction or gangrene; K31.9 Disease of stomach and duodenum, unspecified; K29.70 Gastritis, unspecified, without bleeding
CPT/HCPCS: 43249; 43239; C1726

== ENCOUNTER 2023-04-28 14:25 | Outpatient (CLI) | payer MEDICAID, SELFPAY ==
--- NOTE | 2023-04-28 14:25 | CA_ITS ---
APPROVED REPORT EXAM: Comprehensive 2D, Doppler, and color-flow Echocardiogram [employer] Customer Service: Rosalva Holman RT(R) Ht: 5 ft 2 in Wt: 207lbs BSA: 1.94 BP: 159/84 mmHg Indications: SOB, HTN, hyperlipidemia, asthma, obesity, family history of HD and PAD. 2D Dimensions Left Atrium 3.41 cm F: 2.7 - 3.8 LVEF (West's) 53.10 % F: 54 - 74 LVOT 1.89 cm (M/F) 1.5-2.5 LV Volume 59.50 mL F: 46 - 106 LV Volume Index 30.7 mL/m2 F: 29 - 61 LA Volume 36.60 mL LA Volume Index 18.87 mL/m2 (M/F) 16-34 EF AP4 55.80 % EF AP2 50.8 % EF BP 53.1 % GL Strain -17.0 % M-Mode Dimensions RVDd 2.75 cm (0.9-2.6) LVDd 3.81 cm (3.5-5.7) Ao Diam 2.22 cm (2.0-3.7) LVDs 2.97 cm (3.5-5.7) IVSd 0.97 cm (0.6-1.1) PWd 0.68 cm (0.6-1.1) EF (Teich) 45.10% FS 22.00% EDV (Teich) 62.30 mL ESV (Teich) 34.20 mL LV Diastology E Decel Time 197 (160-240 msec) E/A Ratio 1.1 MED E' 6.3 (>= 7 cm/sec) E'/MED E' Ratio 12.22 (<= 14) LAT E' 10.2 (>= 10 cm/sec) E/LAT E' Ratio 7.55 (<= 14) Mitral Valve MV E Max Guicho. 77.0 (40-130 cm/s) MV A Velocity 71.0 (40-130 cm/s) E/A Ratio 1.09 MV Decel. Time 197 (160-240 ms) Left Ventricle The left ventricle is normal size. The left ventricular systolic function is normal. The left ventricular ejection fraction is within the normal range. There is normal left ventricular wall thickness. There is normal LV segmental wall motion. The left ventricular diastolic function is normal. LVEF is 55%. Right Ventricle The right ventricle is normal size. The right ventricular systolic function is normal. Atria The left atrium size is normal. The right atrium size is normal. There is no Doppler evidence of interatrial shunt. Aortic Valve The aortic valve is mildly thickened. There is no aortic valvular stenosis. Trace aortic regurgitation. Mitral Valve The mitral valve is mildly thickened. No evidence of mitral valve stenosis. Trace mitral regurgitation. Tricuspid Valve The tricuspid valve leaflets are thin and pliable. Trace tricuspid regurgitation. There is insufficient TR jet to estimate RVSP. Pulmonic Valve The pulmonary valve is normal in structure. Trace pulmonic regurgitation. Great Vessels The aortic root is not well-visualized. IVC is normal in size and collapses >50% with inspiration. Pericardium There is no pericardial effusion. Other Information Study Quality: Technically Difficult Conclusion Technically difficult study due to poor acoustic windows. Normal biventricular systolic function. No significant valvular stenosis or regurgitation. Electronically signed by : Lottie Black MD 05/01/2023 23:19:34
== END 2023-04-28 23:59 ==
LOC: RT 14:25
PROVIDERS: PCP Family Medicine; Visit Provider Internal Medicine
DX: R06.00 Dyspnea, unspecified (principal); R94.31 Abnormal electrocardiogram [ECG] [EKG]; I73.9 Peripheral vascular disease, unspecified; I10 Essential (primary) hypertension; E78.5 Hyperlipidemia, unspecified; J45.909 Unspecified asthma, uncomplicated
CPT/HCPCS: 93306

== ENCOUNTER 2023-06-22 14:46 | Outpatient (CLI) | payer MEDICAID, SELFPAY ==
[2023-06-22 15:23] LABS: Basophils # 0.1 K/mm3 (0-0.2); Basophils % 1.2 % (0.1-2.0); Eosinophils # 0.2 K/mm3 (0.0-0.4); Eosinophils % 2.1 % (0.1-12.0); Hematocrit 38.7 % (37.0-47.0); Hemoglobin 12.4 g/dL (12.2-16.2); Lymphocytes # 3.7 K/mm3 (0.7-4.5); Lymphocytes % 38.2 % (10-50); Mean Corpuscular Hemoglobin 29.3 pg (27.0-31.2); Mean Corpuscular Volume 91.7 fl (81-99); Mean Platelet Volume 8.4 fl (7.4-10.4); Monocytes # 0.5 K/mm3 (0.1-1.0); Monocytes % 5.2 % (1.7-9.3); Neutrophils # 5.2 K/mm3 (1.8-7.8); Neutrophils % 53.3 % (37.0-80.0); Platelet Count 411 K/mm3 (142-424); Red Blood Count 4.22 M/mm3 (4.20-5.40); Red Cell Distribution Width 14.4 % (11.5-17.5); White Blood Count 9.8 K/mm3 (4.8-10.8)
[2023-06-22 15:41] LABS: Blood Urea Nitrogen 19 mg/dl (7-17); Calcium 9.3 mg/dl (8.4-10.2); Carbon Dioxide 23 mmol/L (22.0-30.0); Chloride 105 mmol/L (98-107); Estimated Glomerular Filt Rate 57 ml/min (>60); GFR (African American) 68 ML/MIN (>60); Glucose 186 mg/dl (74-100); Sodium 138 mmol/L (136-145)
== END 2023-06-22 23:59 ==
LOC: LAB 14:47
PROVIDERS: PCP Family Medicine; Visit Provider Internal Medicine
DX: I10 Essential (primary) hypertension (principal); I73.9 Peripheral vascular disease, unspecified; J45.909 Unspecified asthma, uncomplicated; R06.00 Dyspnea, unspecified
CPT/HCPCS: 36415; 80048; 85025

== ENCOUNTER 2023-07-01 09:05 | Day surgery (SDC) | payer MEDICAID, SELFPAY ==
[2023-07-01] VITALS (13 sets, daily range): BP systolic 111–206; BP diastolic 63–120; PULSE 60–110; RESP 16–20; O2SAT 92–99; BMI 37.5
--- NOTE | 2023-07-01 07:16 | IR_ITS ---
APPROVED REPORT Patient Location: Outpatient PROCEDURES Catheter placed in the distal abdominal aorta Distal abdominal aortogram Catheter placement in the right external iliac artery Right external iliac artery antegrade angiogram with unilateral runoff to the right foot Catheter placed in the left external iliac artery Left external iliac artery antegrade angiogram with unilateral runoff to the left foot INDICATION Abnormal ROBERT, Rosita claudication class III, Peripheral artery disease Informed consent was obtained prior to the procedure. COMPLICATIONS None Estimated Blood Loss: Less than 10 mls TECHNIQUE 1% lidocaine used anesthetize the right anterior aspect of the wrist. The right radial artery was accessed via the Salinger technique and a 6 Cook Islander hydrophilic sheath was placed in the right radial artery. Verapamil nitroglycerin and lidocaine and heparin were administered intra-arterially. Under fluoroscopic guidance a PV multi curve was placed into the left external iliac artery were left external iliac artery antegrade angiography with unilateral runoff to the left foot was performed. This technique was repeated on the right external iliac artery with runoff to the right foot. Following this the catheter was pulled back to the distal abdominal aorta were distal abdominal aortography was performed. Following this the apparatus was removed the sheath was removed and hemostasis was achieved using TR banding patient was transferred to the postop putting in stable condition ANGIOGRAPHIC RESULTS Distal abdominal aorta is normal Bilateral common internal and external iliac arteries are normal Bilateral common femoral profunda femoris and superficial femoral arteries are widely patent and normal Bilateral popliteal arteries are normal Three-vessel runoff below the knee bilaterally IMPRESSION Normal distal abdominal aorta with normal three-vessel iliofemoral runoff to the ankle bilaterally PLAN 1. Evaluation for nonvascular etiologies of claudication Electronically signed by : Aníbal Orozco MD 07/01/2023 12:33:33
[2023-07-01 09:46] LABS: Anion Gap 12.8 mEq/L (5-15); Blood Urea Nitrogen 16 mg/dl (7-17); Calcium 9.1 mg/dl (8.4-10.2); Carbon Dioxide 24 mmol/L (22.0-30.0); Chloride 105 mmol/L (98-107); Creatinine Clearance Estimated 87 mL/min (50-200); Estimated Glomerular Filt Rate 64 ml/min (>60); GFR (African American) 77 ML/MIN (>60); Glucose 114 mg/dl (74-100); Potassium 3.8 mmoL/L (3.5-5.1); Sodium 138 mmol/L (136-145)
[2023-07-01 10:02] LABS: Basophils # 0.1 K/mm3 (0-0.2); Basophils % 1.1 % (0.1-2.0); Eosinophils # 0.2 K/mm3 (0.0-0.4); Eosinophils % 2.5 % (0.1-12.0); Hemoglobin 12.6 g/dL (12.2-16.2); Lymphocytes # 4.6 K/mm3 (0.7-4.5); Lymphocytes % 47.3 % (10-50); Mean Corpuscular HGB Conc 32.2 g/dL (31.8-35.4); Mean Corpuscular Hemoglobin 29.5 pg (27.0-31.2); Mean Corpuscular Volume 91.6 fl (81-99); Mean Platelet Volume 8.8 fl (7.4-10.4); Monocytes # 0.6 K/mm3 (0.1-1.0); Monocytes % 5.8 % (1.7-9.3); Neutrophils # 4.2 K/mm3 (1.8-7.8); Neutrophils % 43.3 % (37.0-80.0); Platelet Count 404 K/mm3 (142-424); Red Blood Count 4.26 M/mm3 (4.20-5.40); Red Cell Distribution Width 14.4 % (11.5-17.5); White Blood Count 9.8 K/mm3 (4.8-10.8)
[2023-07-01] MEDS: diphenhydrAMINE 50MG/ML VIAL 50 MG IV (11:12)
[2023-07-01] MEDS: FAMOTIDINE 20MG/2ML VIAL 20 MG IV (11:13)
[2023-07-01] MEDS: METHYLPREDNISOLONE SOD SUCC 125MG VIAL 125 MG IV (11:13)
[2023-07-01] MEDS: VERAPAMIL 2.5MG/ML 2ML VIAL 2.5 MG IV (11:14)
[2023-07-01] MEDS: NITROGLYCERIN 800MCG/8ML SYR (CATH LAB) 800 MCG IA (11:16)
[2023-07-01] MEDS: LIDOCAINE 1% 10ML MDV 20 ML IJ (11:16)
[2023-07-01] MEDS: HEPARIN 1,000 UNITS/ML 10ML VIAL (CATH LAB) 10000 UNIT IV (11:16)
[2023-07-01] MEDS: HEPARIN 1,000 UNITS/500ML NS (CATH LAB) 3000 UNIT IV (11:16)
[2023-07-01] MEDS: 0.9 % SODIUM CHLORIDE 500 ML 25 ML IV (11:16)
[2023-07-01] MEDS: FENTANYL 100MCG/2ML VIAL 50 MCG IV (11:17)
[2023-07-01] MEDS: MIDAZOLAM HCL 1MG/1ML 5ML VIAL 1 MG IV (11:17)
[2023-07-01] MEDS: PROMETHAZINE HCL 25MG/ML 1ML VIAL 25 MG IV (12:38)
[2023-07-01] MEDS: IOHEXOL 139 ML IV (13:24)
== END 2023-07-01 15:25 | disposition home or self-care (01) ==
PROVIDERS: PCP Family Medicine; Visit Provider Internal Medicine
DX: I10 Essential (primary) hypertension (principal); Z79.899 Other long term (current) drug therapy; I70.213 Atherosclerosis of native arteries of extremities with intermittent claudication, bilateral legs; E78.5 Hyperlipidemia, unspecified; R06.09 Other forms of dyspnea; J45.20 Mild intermittent asthma, uncomplicated
CPT/HCPCS: 36247; 36248; 75716; 80048; 85025; 99152; 99153; C1725; C1760; C1769; J1644; Q9966

== ENCOUNTER 2023-11-30 10:56 | Outpatient (CLI) | payer MEDICAID, SELFPAY ==
[2023-11-30 21:30] LABS: Basophils # 0.1 K/mm3 (0-0.2); Basophils % 1.3 % (0.1-2.0); Eosinophils # 0.2 K/mm3 (0.0-0.4); Eosinophils % 2.3 % (0.1-12.0); Hemoglobin 12.6 g/dL (12.2-16.2); Lymphocytes # 3.3 K/mm3 (0.7-4.5); Lymphocytes % 42.9 % (10-50); Mean Corpuscular HGB Conc 29.4 g/dL (31.8-35.4); Mean Corpuscular Volume 91.8 fl (81-99); Mean Platelet Volume 10.4 fl (7.4-10.4); Monocytes # 0.5 K/mm3 (0.1-1.0); Monocytes % 6.2 % (1.7-9.3); Neutrophils # 3.6 K/mm3 (1.8-7.8); Neutrophils % 47.3 % (37.0-80.0); Platelet Count 491 K/mm3 (142-424); Red Blood Count 4.68 M/mm3 (4.20-5.40); White Blood Count 7.6 K/mm3 (4.8-10.8)
[2023-11-30 21:50] LABS: Alanine Aminotransferase 23 U/L (12-78); Albumin Level 4.1 g/dl (3.5-5.0); Albumin/Globulin Ratio 1.1 (1.1-1.8); Alkaline Phosphatase 74 U/L (38-126); Anion Gap 14.4 mEq/L (5-15); Aspartate Amino Transferase 31 U/L (14-36); Bilirubin,Total 0.5 mg/dl (0.2-1.3); Blood Urea Nitrogen 18 mg/dl (7-17); Calcium 9.5 mg/dl (8.4-10.2); Carbon Dioxide 22 mmol/L (22.0-30.0); Chloride 106 mmol/L (98-107); Estimated Glomerular Filt Rate 56 ml/min (>60); GFR (African American) 68 ML/MIN (>60); Globulin 3.9 g/dL (1.3-3.2); Glucose 112 mg/dl (74-100); HDL Cholesterol 59 mg/dl (40-60); Potassium 4.4 mmoL/L (3.5-5.1); Sodium 138 mmol/L (136-145); Triglycerides 291 mg/dl (30-150); VLDL Cholesterol 58 mg/dL (0-40)
[2023-11-30 22:01] LABS: Direct LDL Cholesterol 178.61 mg/dL (100-129)
[2023-11-30 22:18] LABS: Chol/HDL Ratio 5.6 (1-3.5); Cholesterol 328 mg/dl (140-200)
[2023-11-30 22:20] LABS: Hemoglobin A1C 6.3 % (4.0-6.0)
[2023-11-30 22:21] LABS: Thyroid Stimulating Hormone 4.41 uIU/mL (0.465-4.68)
== END 2023-11-30 23:59 | disposition home or self-care (01) ==
LOC: LAB.DROPOF 12-01 15:06
PROVIDERS: PCP Family Medicine; Visit Provider Family Medicine
DX: E78.5 Hyperlipidemia, unspecified (principal); I10 Essential (primary) hypertension
CPT/HCPCS: 80050; 80053; 80061; 83036; 84443; 85025

== ENCOUNTER 2024-04-30 14:04 | Emergency (ER) | payer MEDICAID, SELFPAY ==
[2024-04-30 14:05] VITALS: BP 171/91; PULSE 89; RESP 20; TEMP 36.6; O2SAT 98; BMI 38.0
--- NOTE | 2024-04-30 14:21 | XR_ITS ---
PROCEDURE INFORMATION: Exam: XR Chest Exam date and time: 04/30/2024 3:14 PM Age: 63 years old Clinical indication: Shortness of breath; Additional info: Short of breath TECHNIQUE: Imaging protocol: Radiologic exam of the chest. Views: 1 view. COMPARISON: CR XR CHEST 2V 04/16/2022 2:52 PM FINDINGS: Tubes, catheters and devices: None. Lungs: Lung volumes are decreased. Mild bilateral perihilar and basilar interstitial lung opacities, suggesting pulmonary edema versus infiltrates. The peripheral lungs are otherwise clear. No consolidation. Pleural spaces: No pleural effusion. No pneumothorax. Heart/Mediastinum: Mediastinum and larry appear unremarkable. Bones/joints: Generalized bony degenerative changes. Soft tissues: This study is limited by patient's body habitus. IMPRESSION: Mild interstitial pulmonary edema versus infiltrates.
--- NOTE | 2024-04-30 14:25 | CT_ITS ---
PROCEDURE INFORMATION: Exam: CT Abdomen And Pelvis With Contrast Exam date and time: 04/30/2024 3:09 PM Age: 63 years old Clinical indication: Abdominal pain; Generalized; Additional info: Abd pain TECHNIQUE: Imaging protocol: Computed tomography of the abdomen and pelvis with contrast. Radiation optimization: All CT scans at this facility use at least one of these dose optimization techniques: automated exposure control; mA and/or kV adjustment per patient size (includes targeted exams where dose is matched to clinical indication); or iterative reconstruction. Contrast material: ISOVUE; Contrast volume: 75 ml; Contrast route: IV; COMPARISON: CT ABDOMEN PELVIS W CON 02/06/2021 8:33 PM FINDINGS: Lungs: Linear density identified within bilateral lower lungs. Coronary arteries: Coronary arterial calcifications are demonstrated. Diaphragm: Moderate to large size hiatal hernia is demonstrated within the lower mediastinum. Elevation of the left hemidiaphragm is demonstrated. Liver: Liver demonstrates diffuse severe hypodensity. Liver appears heterogeneous with irregular border. Possible hepatic parenchymal disease. Gallbladder and biliary ducts: The gallbladder has been surgically removed. Surgical clips identified in the gallbladder fossa. Post cholecystectomy common biliary duct ectasia. If clinically indicated, consider correlation with liver function tests. Pancreas: Unremarkable. Spleen: Unremarkable. No splenomegaly. Adrenal glands: Normal. No mass. Kidneys and ureters: Small heterogeneous, irregular, atrophic kidneys bilaterally and symmetrically, suggesting chronic renal disease. No visualized renal hydronephrosis. No visible renal calculus. Stomach and bowel: Possible mild increased volume of colonic fecal material identified throughout the colon. Slightly prominent fecal material identified in the distal colon and rectum. Few colonic diverticulosis is demonstrated. No definite visible evidence for focal acute diverticulitis. Appendix: The visualized appendix appears unremarkable. Intraperitoneal space: No free air. No significant fluid collection. Vasculature: Calcifications in the pelvis, most compatible with phleboliths. [id number] atherosclerotic calcification demonstrated within the aorta. [id number] diffuse atherosclerotic arterial vascular wall calcifications are demonstrated. Lymph nodes: No enlarged lymph nodes. Urinary bladder: Unremarkable as visualized. Reproductive: Unremarkable as visualized. Bones/joints: Levoscoliosis of the lumbar spine is demonstrated. Mild to moderate generalized bony degenerative changes. Bony structures appear otherwise unremarkable. Soft tissues: Unremarkable. Other findings: This study is limited by patient's body habitus. Limited study with motion artifact. IMPRESSION: 1. Moderate to large size hiatal hernia. 2. Linear bilateral lower chest pulmonary atelectasis, or scarring. 3. Severe hepatic steatosis. Nonspecific heterogeneous and irregular appearance of the liver. Recommend correlation with liver function tests. 4. Possible mild constipation. Mild colonic diverticulosis. 5. Chronic findings.
[2024-04-30 14:30] VITALS: BP 147/104; PULSE 85; O2SAT 97
--- NOTE | 2024-04-30 14:41 | HMH.EDGENADL ---
Discharge Plan Disposition Patient Disposition: Home, Self-Care Condition: Good Prescriptions Prescriptions: New polyethylene glycol 3350 [Miralax] 17 gram/dose powder 17 g PO DAILY 30 Days Qty: 510 0RF No Action nitroglycerin 0.4 mg tablet, sublingual 0.4 mg SUBLINGUAL Q5-15M PRN (Reason: Chest Pain) Rx Instructions: do not exceed 3 doses per episode ipratropium-albuterol 0.5 mg-3 mg(2.5 mg base)/3 mL solution for nebulization See Rx Instructions .ROUTE .COMPLEX Qty: 180 10RF Rx Instructions: USE 1 VIAL FOUR TIMES A DAY NEEDED FOR SHORTNESS OF BREATH OR WHEEZING prochlorperazine maleate [Compazine] 10 mg tablet 10 mg PO BID PRN (Reason: nausea and vomiting) Qty: 60 10RF Wegovy 0.25 mg/0.5 mL pen injector 0.25 mg SQ WEEKLY Qty: 2.5 1RF Rx Instructions: administer weeks 1 through 4 of therapy amlodipine 10 mg tablet See Rx Instructions .ROUTE .COMPLEX Qty: 30 0RF Rx Instructions: TAKE 1 TABLET DAILY FOR HIGH BLOOD PRESSURE budesonide-formoterol [Symbicort] 160-4.5 mcg/actuation HFA aerosol inhaler See Rx Instructions .ROUTE .COMPLEX Qty: 10.2 0RF Rx Instructions: INHALE 2 PUFFS TWO TIMES DAILY hydrochlorothiazide 25 mg tablet 25 mg PO DAILY Qty: 30 2RF hydroxyzine HCl 25 mg tablet 25 mg PO Q8H PRN (Reason: itching) Qty: 45 0RF levetiracetam [Keppra] 1,000 mg tablet 1,000 mg PO BID Qty: 30 0RF losartan 100 mg tablet See Rx Instructions .ROUTE .COMPLEX Qty: 30 0RF Rx Instructions: TAKE 1 TABLET BY MOUTH ONCE A DAY metoprolol succinate [Toprol XL] 100 mg tablet extended release 24 hr 100 mg PO DAILY Qty: 30 0RF pantoprazole 40 mg tablet,delayed release (DR/EC) See Rx Instructions .ROUTE .COMPLEX Qty: 30 0RF Rx Instructions: TAKE 1 TABLET BY MOUTH twice A DAY FOR STOMACH albuterol sulfate 90 mcg/actuation HFA aerosol inhaler 1 inh INHALATION Q6H PRN (Reason: shortness of breath or wheezing) 90 Days Qty: 8.5 3RF ropinirole 3 mg tablet See Rx Instructions .ROUTE .COMPLEX Qty: 30 4RF Dose Instruction: TAKE 1 TABLET BY MOUTH ONCE A DAY Rx Instructions: TAKE 1 TABLET BY MOUTH ONCE A DAY phenytoin sodium extended 100 mg capsule See Rx Instructions .ROUTE .COMPLEX Qty: 180 2RF Dose Instruction: TAKE 3 CAPSULES (300MG) BY MOUTH 2 TIMES DAILY Rx Instructions: TAKE 3 CAPSULES (300MG) BY MOUTH 2 TIMES DAILY rosuvastatin 20 mg tablet 20 mg PO DAILY Qty: 90 3RF (DME) FreeStyle Test Strip See Rx Instructions .Route Qty: 100 2RF Rx Instructions: Use to check blood sugar three times daily and prn (DME) lancets [FreeStyle Lancets] 28 gauge misc See Rx Instructions .Route Qty: 100 2RF Rx Instructions: Use to check blood sugar three times daily and prn pioglitazone [Actos] 15 mg tablet 15 mg PO DAILY Rx Instructions: for fatty liver magnesium citrate Solution 150 ml PO DAILY PRN (Reason: constipation) Qty: 296 5RF Rx Instructions: repeat in one day prn Referrals Follow up/Referrals: Gavin Portillo MD [Primary Care Provider] - See instructions Activity Restrictions/Add. Instructions Additional Instructions/Restrictions: Increase fluids and rest. Take MiraLAX daily as directed. Please follow-up with your PCP. Return to ED for any worsening problems or concerns. Clinical Impressions Clinical Impression: Constipation Instructions Patient Instructions: Constipation, DI for Acute Abdominal Pain Print Language Print Language: Welsh Discharge ED Provider: Romero Camacho General Adult HPI <Merlene Colon (ED), WEAVE DEFECT CHARTING CLERK - Last Filed: 04/30/24 20:34> General Chief complaint: Abdominal Pain Stated complaint: diff defecating Time Seen by Provider: 04/30/24 14:06 Mode of Arrival: Ambulatory Source of Information: Patient Limitations: No Limitations Description of Symptoms (Recalled from ER Triage Doc. by RN): no bowel movement in 3 weeks. passing gas. has a hernia History of Present Illness HPI narrative: This is a 63-year-old female who presents to the ED today for complaint of lower abdominal pain and no bowel movement since 04/10/2024. Patient states that she has a hernia and has had vomiting back on April 10. She says that she saw and he gave her her magnesium and it only produced water. She took the mag on . She has lower abdominal pain. She has no vomiting but does have some nausea and admits to always having reflux. She is passing gas. She has no other symptoms. Related Data Home Medications ?Medication ?Instructions ?Recorded ?Confirmed nitroglycerin 0.4 mg sublingual 0.4 mg sublingual Q5-15M PRN Chest 04/24/20 11/30/23 tablet Pain pioglitazone 15 mg tablet (Actos) 15 mg PO DAILY 02/02/24 Previous Rx's ?Medication ?Instructions ?Recorded albuterol sulfate 90 mcg/actuation 1 inh inhalation Q6H PRN shortness 09/30/22 aerosol inhaler of breath or wheezing 90 days #8.5 grams ipratropium 0.5 mg-albuterol 3 mg See Rx Instructions .Route 01/02/23 (2.5 mg base)/3 mL nebulization .COMPLEX . #180 mL soln ropinirole 3 mg tablet See Rx Instructions .Route 03/09/23 .COMPLEX #30 tabs phenytoin sodium extended 100 mg See Rx Instructions .Route 09/09/23 capsule .COMPLEX #180 caps prochlorperazine maleate 10 mg 10 mg PO BID PRN nausea and 11/30/23 tablet (Compazine) vomiting #60 tabs semaglutide (weight loss) 0.25 0.25 mg (0.5 mL) SQ WEEKLY #2.5 mL 11/30/23 mg/0.5 mL subcutaneous pen injector (Wegovy) amlodipine 10 mg tablet See Rx Instructions .Route 12/01/23 .COMPLEX bp #30 tabs budesonide-formoterol HFA 160 See Rx Instructions .Route 12/01/23 mcg-4.5 mcg/actuation aerosol .COMPLEX . #10.2 grams inhaler (Symbicort) hydrochlorothiazide 25 mg tablet 25 mg PO DAILY #30 tabs 12/01/23 hydroxyzine HCl 25 mg tablet 25 mg PO Q8H PRN itching #45 tabs 12/01/23 levetiracetam 1,000 mg tablet 1,000 mg PO BID seizure #30 tabs 12/01/23 (Keppra) losartan 100 mg tablet See Rx Instructions .Route 12/01/23 .COMPLEX bp #30 tabs metoprolol succinate 100 mg 100 mg PO DAILY bp #30 tabs 12/01/23 tablet,extended release 24 hr (Toprol XL) pantoprazole 40 mg tablet,delayed See Rx Instructions .Route 12/01/23 release .COMPLEX gerd #30 tabs rosuvastatin 20 mg tablet 20 mg PO DAILY #90 tabs 12/02/23 blood sugar diagnostic (FreeStyle #100 ea 12/03/23 Test strips) lancets 28 gauge (FreeStyle #100 ea 12/03/23 Lancets) magnesium citrate 150 ml PO DAILY PRN constipation 04/27/24 #296 mL polyethylene glycol 3350 17 17 g PO DAILY 30 days #510 grams 04/30/24 gram/dose oral powder (Miralax) Allergies Allergy/AdvReac Type Severity Reaction Status Date / Time egg Allergy Unknown Unknown Verified 11/30/23 09:51 allergy reaction shellfish derived Allergy Unknown Swelling Verified 11/30/23 09:51 of Lip/Tongue/Throat nut - unspecified AdvReac Severe Unknown Verified 11/30/23 09:51 allergy reaction aspirin AdvReac Unknown unknown Verified 11/30/23 09:51 Penicillins AdvReac Unknown unknown Verified 11/30/23 09:51 ibuprofen AdvReac Unknown Verified 11/30/23 09:51 allergy reaction PFSH <Merlene Colon (ED), WEAVE DEFECT CHARTING CLERK - Last Filed: 04/30/24 20:34> PFS Disclaimer: The information contained in this section may have been updated after the patient was seen, as this information can be updated by other users. Medical History Abnormal ankle brachial index (ROBERT) Dyspnea History of nausea Seizure disorder Carpal tunnel syndrome Hypertension Surgical History History of foot operation heel spurs bilateral Hx of hysterectomy partial History of foot surgery bilateral knot on top of foot History of carpal tunnel release of both wrists Family History Other Cancer of kidney Family history of cancer Family history of diabetes mellitus type II Family history of hypertension Family history of myocardial infarction Lung cancer Social History Smoking Status: Never smoker alcohol intake: never substance use type: denies use current occupational status: disabled Travel in the last 8 weeks: Inside the [place] household members: spouse housing: house lives independently: No marital status: education level: high school service: No correction: No caffeine: Yes do you feel safe at home: Yes victim of physical abuse: No victim of emotional abuse: No victim of sexual abuse: No would you like helpful sources: No Have you lived/traveled outside [place] in past 30 days?: No Contact w/someone who lives/traveled outside US past 30 days?: No Exposure to someone with infectious disease in past 14 days?: No Do you have a fever (greater than 100.4 F or 38 C)?: No Have you tested positive for COVID-19: No Exposed to someone with COVID-19 in past 14 days?: No Do you have a sore throat?: No Do you have a cough?: No Do you have any weakness?: No Do you have any diarrhea?: No Are you experiencing any unusual bleeding?: No Do you have any muscle aches/pain?: No Do you have any abdominal pain?: No Are you experiencing loss of taste or smell?: No Other Medical History Have you received the Flu Vaccine for this season: No Have you received the Pneumonia Vaccine: Yes <Merlene Colon (ED), WEAVE DEFECT CHARTING CLERK - Last Filed: 04/30/24 20:34> ROS Obtained: Yes Systems reviewed as appropriate & no additional complaints except as documented Constitutional Constitutional: Reports as per HPI Physical Exam <Merlene Colon (ED), WEAVE DEFECT CHARTING CLERK - Last Filed: 04/30/24 20:34> General General appearance: alert and in no apparent distress Head Head exam: atraumatic and normocephalic Eye Eye exam: Present normal appearance, PERRL and EOMI ENT ENT exam: Present normal exam, normal oropharynx and mucous membranes moist Neck Neck exam: Present normal inspection, full ROM and trachea midline Respiratory Respiratory exam: Present normal lung sounds bilaterally Cardiovascular Cardiovascular exam: Present regular rate, normal rhythm, normal heart sounds, +S1 and +S2 Abdominal Exam Abdominal exam: Present soft and normal bowel sounds Abdominal tenderness: Present RLQ, LLQ and mild Extremities Exam Extremities exam: Present normal inspection, full ROM and normal capillary refill Back Exam Back exam: Present normal inspection Neurological Exam Neurological exam: Present alert, oriented X3 and normal gait Skin Skin exam: Present warm, dry and intact Medical Decision Making <Merlene Colon (ED), WEAVE DEFECT CHARTING CLERK - Last Filed: 04/30/24 20:34> Medical Records Screening: Per USPSTF and CDC recommendations, given the prevalence of disease in our region, it is our hospital?s policy to screen for HIV and viral Hepatitis for all patients aged 18 and over and those with ongoing risk factors. Mukesh Inquiry Pt receiving controlled substance: No Mukesh was queried for this patient: No Vital Signs: 04/30/24 14:05 04/30/24 14:30 04/30/24 15:31 Temperature 98 F Temperature Source Oral Pulse Rate 85 80 Pulse Rate [Right] 89 Respiratory Rate 20 Blood Pressure 147/104 H 147/82 H Blood Pressure [Right Arm] 171/91 H Blood Pressure Mean [Right Arm] 117 02 Sat by Pulse Oximetry 98 97 99 Oxygen Delivery Method Room Air Room Air 04/30/24 16:15 04/30/24 16:30 04/30/24 17:00 Temperature 98.4 F Temperature Source Pulse Rate 68 73 72 Pulse Rate [Right] Respiratory Rate 18 Blood Pressure 136/78 152/92 H 158/92 H Blood Pressure [Right Arm] Blood Pressure Mean [Right Arm] 02 Sat by Pulse Oximetry 99 100 Oxygen Delivery Method Lab Data Lab Results 04/30/24 14:43: WBC 8.5, RBC 4.17 L, Hgb 10.9 L, Hct 34.3 L, MCV 82.3, MCH 26.1 L, MCHC 31.8, RDW 15.9, Plt Count 421, MPV 9.7, Neut % (Auto) 48.1, Lymph % (Auto) 41.7, [place] % (Auto) 7.3, Eos % (Auto) 2.0, Baso % (Auto) 0.7, Neut # (Auto) 4.1, Lymph # (Auto) 3.5, [place] # (Auto) 0.6, Eos # (Auto) 0.2, Baso # (Auto) 0.1, Sodium 135 L, Potassium 4.2, Chloride 105, Carbon Dioxide 24, Anion Gap 10.2, BUN 16, Creatinine 0.90, Estimated Creat Clear 88, Estimated GFR 64, Est GFR ( Amer) 77, Glucose 96, Calcium 9.3, Total Bilirubin 0.3, AST 34, ALT 25, Alkaline Phosphatase 86, Troponin I < 0.01, Total Protein 7.9, Albumin 4.2, Globulin 3.7 H, Albumin/Globulin Ratio 1.1, Lipase 71, HCV Ab TUNDE w/Rflx PCR Qn Negative 04/30/24 14:50: HIV Ag/Ab Combo Qual Negative 04/30/24 15:43: Urine Color Yellow, Urine Appearance Clear, Urine pH 6.0, Ur Specific [place] 1.020, Urine Protein Negative, Urine Glucose (UA) Negative, Urine Ketones Negative, Urine Blood Negative, Urine Nitrate Negative, Urine Bilirubin Negative, Urine Urobilinogen 0.2, Ur Leukocyte Esterase Negative, Urine RBC None, Urine WBC Occasional, Ur Squamous Epith Cells 3-5, Urine Bacteria None 04/30/24 14:43 04/30/24 14:43 Orders (Tests/Meds): ED MEDICATIONS Discontinued Medications Generic Name Dose Route Start Last Admin Trade Name Freq PRN Reason Stop Dose Admin Famotidine 20 mg 04/30/24 14:20 04/30/24 14:42 Famotidine 20mg/2ml Vial IV 04/30/24 14:21 20 mg ONCE ONE Administration Iopamidol 75 ml 04/30/24 15:20 04/30/24 15:21 Iopamidol-370 (76%);100ml Bottle IV 04/30/24 15:21 75 ml ONCE ONE Administration Ketorolac Tromethamine 15 mg 04/30/24 14:26 04/30/24 14:42 Ketorolac 30mg/Ml Vial IV 04/30/24 14:27 15 mg ONCE ONE Administration Sodium Chloride 8 ml 04/30/24 14:20 Sodium Chloride 0.9% 10ml Vial IV 05/30/24 14:19 NEEDED PRN dilute pepcid Sodium Chloride 10 ml 04/30/24 15:20 04/30/24 15:21 Sodium Chloride 0.9% 10ml Syr (Rad Only) IV 04/30/24 15:21 10 ml ONCE ONE Administration ORDERS Category Date Time Status CT abdomen pelvis w con Stat Cat Scan 04/30/24 14:25 Completed Chest XR -- portable [XR chest portable] Stat Exams 04/30/24 14:21 Completed CBC [Complete Blood Count Auto Diff] Stat Lab 04/30/24 14:43 Completed Comprehensive Metabolic Panel Stat Lab 04/30/24 14:43 Completed HIV Combo Stat Lab 04/30/24 14:50 Completed Hepatitis C Ab Qual. W/ RFX Stat Lab 04/30/24 14:43 Completed Lipase Stat Lab 04/30/24 14:43 Completed Troponin I Stat Lab 04/30/24 14:43 Completed Urinalysis and Microscopic Stat Lab 04/30/24 15:43 Completed Medical Decision Narrative: Insert review patient is a 63-year-old female presenting to the emergency department for evaluation of possible constipation. She has not had a bowel movement since 04/10/2024. Patient is hemodynamically stable and nontoxic-appearing upon arrival, afebrile. Differential diagnosis includes bowel obstruction, constipation, among others. Workup will be conducted with hematologic labs, specific imaging including CT scan of abdomen, provocative tests. Initial inventions include CT scan. Initial workup reviewed by ar hematologic labs are remarkable for nothing acute. Formal imaging read remarkable for constipation. upon repeat evaluation patient's pain is improved. Patient to follow-up with her primary care physician for follow-up on constipation. She will take MiraLAX daily and increase for results. <Levi Raymond MD - Last Filed: 05/01/24 09:46> Vital Signs: 04/30/24 14:05 04/30/24 14:30 04/30/24 15:31 Temperature 98 F Temperature Source Oral Pulse Rate 85 80 Pulse Rate [Right] 89 Respiratory Rate 20 Blood Pressure 147/104 H 147/82 H Blood Pressure [Right Arm] 171/91 H Blood Pressure Mean [Right Arm] 117 02 Sat by Pulse Oximetry 98 97 99 Oxygen Delivery Method Room Air Room Air 04/30/24 16:15 04/30/24 16:30 04/30/24 17:00 Temperature 98.4 F Temperature Source Pulse Rate 68 73 72 Pulse Rate [Right] Respiratory Rate 18 Blood Pressure 136/78 152/92 H 158/92 H Blood Pressure [Right Arm] Blood Pressure Mean [Right Arm] 02 Sat by Pulse Oximetry 99 100 Oxygen Delivery Method Lab Data Lab Results 04/30/24 14:43: WBC 8.5, RBC 4.17 L, Hgb 10.9 L, Hct 34.3 L, MCV 82.3, MCH 26.1 L, MCHC 31.8, RDW 15.9, Plt Count 421, MPV 9.7, Neut % (Auto) 48.1, Lymph % (Auto) 41.7, [place] % (Auto) 7.3, Eos % (Auto) 2.0, Baso % (Auto) 0.7, Neut # (Auto) 4.1, Lymph # (Auto) 3.5, [place] # (Auto) 0.6, Eos # (Auto) 0.2, Baso # (Auto) 0.1, Sodium 135 L, Potassium 4.2, Chloride 105, Carbon Dioxide 24, Anion Gap 10.2, BUN 16, Creatinine 0.90, Estimated Creat Clear 88, Estimated GFR 64, Est GFR ( Amer) 77, Glucose 96, Calcium 9.3, Total Bilirubin 0.3, AST 34, ALT 25, Alkaline Phosphatase 86, Troponin I < 0.01, Total Protein 7.9, Albumin 4.2, Globulin 3.7 H, Albumin/Globulin Ratio 1.1, Lipase 71, HCV Ab TUNDE w/Rflx PCR Qn Negative 04/30/24 14:50: HIV Ag/Ab Combo Qual Negative 04/30/24 15:43: Urine Color Yellow, Urine Appearance Clear, Urine pH 6.0, Ur Specific [place] 1.020, Urine Protein Negative, Urine Glucose (UA) Negative, Urine Ketones Negative, Urine Blood Negative, Urine Nitrate Negative, Urine Bilirubin Negative, Urine Urobilinogen 0.2, Ur Leukocyte Esterase Negative, Urine RBC None, Urine WBC Occasional, Ur Squamous Epith Cells 3-5, Urine Bacteria None Orders (Tests/Meds): ED MEDICATIONS Discontinued Medications Generic Name Dose Route Start Last Admin Trade Name Bibi PRN Reason Stop Dose Admin Famotidine 20 mg 04/30/24 14:20 04/30/24 14:42 Famotidine 20mg/2ml Vial IV 04/30/24 14:21 20 mg ONCE ONE Administration Iopamidol 75 ml 04/30/24 15:20 04/30/24 15:21 Iopamidol-370 (76%);100ml Bottle IV 04/30/24 15:21 75 ml ONCE ONE Administration Ketorolac Tromethamine 15 mg 04/30/24 14:26 04/30/24 14:42 Ketorolac 30mg/Ml Vial IV 04/30/24 14:27 15 mg ONCE ONE Administration Sodium Chloride 8 ml 04/30/24 14:20 Sodium Chloride 0.9% 10ml Vial IV 05/30/24 14:19 NEEDED PRN dilute pepcid Sodium Chloride 10 ml 04/30/24 15:20 04/30/24 15:21 Sodium Chloride 0.9% 10ml Syr (Rad Only) IV 04/30/24 15:21 10 ml ONCE ONE Administration ORDERS Category Date Time Status CT abdomen pelvis w con Stat Cat Scan 04/30/24 14:25 Completed Chest XR -- portable [XR chest portable] Stat Exams 04/30/24 14:21 Completed CBC [Complete Blood Count Auto Diff] Stat Lab 04/30/24 14:43 Completed Comprehensive Metabolic Panel Stat Lab 04/30/24 14:43 Completed HIV Combo Stat Lab 04/30/24 14:50 Completed Hepatitis C Ab Qual. W/ RFX Stat Lab 04/30/24 14:43 Completed Lipase Stat Lab 04/30/24 14:43 Completed Troponin I Stat Lab 04/30/24 14:43 Completed Urinalysis and Microscopic Stat Lab 04/30/24 15:43 Completed Medical Decision Narrative: Insert review patient is a 63-year-old female presenting to the emergency department for evaluation of possible constipation. She has not had a bowel movement since 04/10/2024. Patient is hemodynamically stable and nontoxic-appearing upon arrival, afebrile. Differential diagnosis includes bowel obstruction, constipation, among others. Workup will be conducted with hematologic labs, specific imaging including CT scan of abdomen, provocative tests. Initial inventions include CT scan. Initial workup reviewed by me hematologic labs are remarkable for nothing acute. Formal imaging read remarkable for constipation. upon repeat evaluation patient's pain is improved. Patient to follow-up with her primary care physician for follow-up on constipation. She will take MiraLAX daily and increase for results. I was consulted by the LYNN, and we discussed the complexity of the problems being addressed. I approved the treatment and management plan for this patient's care in the Emergency Department, thus performing a substantive portion of the medical decision making. Levi Raymond MD Critical Care <Merlene Colon (ED), WEAVE DEFECT CHARTING CLERK - Last Filed: 04/30/24 20:34> Critical Care Time Critical Care Time: No
[2024-04-30] MEDS: KETOROLAC 30MG/ML VIAL 15 MG IV (14:42)
[2024-04-30] MEDS: FAMOTIDINE 20MG/2ML VIAL 20 MG IV (14:42)
[2024-04-30 14:48] LABS: Basophils # 0.1 K/mm3 (0-0.2); Basophils % 0.7 % (0.1-2.0); Eosinophils # 0.2 K/mm3 (0.0-0.4); Hematocrit 34.3 % (37.0-47.0); Hemoglobin 10.9 g/dL (12.2-16.2); Lymphocytes # 3.5 K/mm3 (0.7-4.5); Lymphocytes % 41.7 % (10-50); Mean Corpuscular HGB Conc 31.8 g/dL (31.8-35.4); Mean Corpuscular Hemoglobin 26.1 pg (27.0-31.2); Mean Corpuscular Volume 82.3 fl (81-99); Mean Platelet Volume 9.7 fl (7.4-10.4); Monocytes # 0.6 K/mm3 (0.1-1.0); Monocytes % 7.3 % (1.7-9.3); Neutrophils # 4.1 K/mm3 (1.8-7.8); Neutrophils % 48.1 % (37.0-80.0); Platelet Count 421 K/mm3 (142-424); Red Blood Count 4.17 M/mm3 (4.20-5.40); Red Cell Distribution Width 15.9 % (11.5-17.5); White Blood Count 8.5 K/mm3 (4.8-10.8)
[2024-04-30 14:53] LABS: Albumin Level 4.2 g/dl (3.5-5.0); Chloride 105 mmol/L (98-107); Potassium 4.2 mmoL/L (3.5-5.1); Sodium 135 mmol/L (136-145)
[2024-04-30 14:55] LABS: Blood Urea Nitrogen 16 mg/dl (7-17); Creatinine Clearance Estimated 88 mL/min (50-200); Estimated Glomerular Filt Rate 64 ml/min (>60); GFR (African American) 77 ML/MIN (>60)
[2024-04-30 14:56] LABS: Alanine Aminotransferase 25 U/L (12-78); Albumin/Globulin Ratio 1.1 (1.1-1.8); Alkaline Phosphatase 86 U/L (38-126); Anion Gap 10.2 mEq/L (5-15); Aspartate Amino Transferase 34 U/L (14-36); Bilirubin,Total 0.3 mg/dl (0.2-1.3); Calcium 9.3 mg/dl (8.4-10.2); Carbon Dioxide 24 mmol/L (22.0-30.0); Globulin 3.7 g/dL (1.3-3.2); Glucose 96 mg/dl (74-100); Lipase 71 U/L (23-300); Total Protein,Serum 7.9 g/dl (6.3-8.2)
--- NOTE | 2024-04-30 15:17 | PC.NURSE ---
Pt gone to CT scan
[2024-04-30] MEDS: IOPAMIDOL-370 (76%);100ML BOTTLE 75 ML IV (15:21)
[2024-04-30] MEDS: SODIUM CHLORIDE 0.9% 10ML SYR (RAD ONLY) 10 ML IV (15:21)
[2024-04-30 15:31] VITALS: BP 147/82; PULSE 80; O2SAT 99
--- NOTE | 2024-04-30 15:39 | PC.NURSE ---
pt back from CT scan
[2024-04-30 15:46] LABS: Microscopic, Urine URINE MICROSCOPIC (MICROSCOPIC)
[2024-04-30 15:49] LABS: Appearance,Urine CLEAR (Clear); Bilirubin,Urine Negative (Negative); Blood, Urine Negative (Negative); Color,Urine YELLOW (Yellow); Glucose,Urine (UA) Negative (Negative); Ketones,Urine Negative (Negative); Leukocyte Esterase,Urine Negative (Negative); Nitrate,Urine Negative (Negative); Protein,Urine Negative (Negative); Urobilinogen,Urine 0.2 EU/dl (0.2)
[2024-04-30 15:54] LABS: Troponin I < 0.01 ng/ml (0.00-0.034)
[2024-04-30 15:56] LABS: WBC,Urine Occasional #/hpf (0-3)
[2024-04-30 16:04] LABS: Hepatitis C Ab Qual. W/ RFX NEGATIVE (Negative)
[2024-04-30 16:15] VITALS: BP 136/78; PULSE 68; O2SAT 99
[2024-04-30 16:30] VITALS: BP 152/92; PULSE 73; O2SAT 100
[2024-04-30 16:56] LABS: HIV Combo NEGATIVE (Negative)
[2024-04-30 17:00] VITALS: BP 158/92; PULSE 72; RESP 18; TEMP 36.9; O2SAT 97
--- NOTE | 2024-05-01 14:30 | ECG_ITS ---
APPROVED REPORT Exam: Resting ECG HR:82 bpm ECG Measurements Heart Rate 82 AXES LA 163 P 31 QRSd 82 QRS 5 QT 364 T 14 QTc 403 Conclusion SINUS RHYTHM NORMAL ECG UNCONFIRMED REPORT Electronically signed by : ABDON PEÑA, 05/02/2024 23:04:43
== END 2024-04-30 17:02 | disposition home or self-care (01) ==
PROVIDERS: Emergency Medicine; Nurse Practitioner; Emergency Provider Student in an Organized Health Care Education/Training Program; PCP Family Medicine
DX: K59.00 Constipation, unspecified (principal); R10.30 Lower abdominal pain, unspecified
CPT/HCPCS: 71045; 74177; 80053; 81001; 83690; 84484; 85025; 86803; 87389; 96374; 96375; 99285; J1885; Q9967; S0028

== ENCOUNTER 2024-07-08 11:50 | Outpatient (CLI) | payer MEDICAID, SELFPAY ==
[2024-07-08 18:07] LABS: Basophils # 0.1 K/mm3 (0-0.2); Eosinophils # 0.2 K/mm3 (0.0-0.4); Eosinophils % 2.6 % (0.1-12.0); Hemoglobin 10.6 g/dL (12.2-16.2); Lymphocytes # 3.5 K/mm3 (0.7-4.5); Lymphocytes % 44.2 % (10-50); Mean Corpuscular HGB Conc 31.2 g/dL (31.8-35.4); Mean Corpuscular Volume 83.5 fl (81-99); Mean Platelet Volume 10.8 fl (7.4-10.4); Monocytes # 0.6 K/mm3 (0.1-1.0); Monocytes % 7.4 % (1.7-9.3); Neutrophils # 3.5 K/mm3 (1.8-7.8); Neutrophils % 44.5 % (37.0-80.0); Platelet Count 436 K/mm3 (142-424); Red Blood Count 4.07 M/mm3 (4.20-5.40); Red Cell Distribution Width 17.1 % (11.5-17.5); White Blood Count 7.8 K/mm3 (4.8-10.8)
[2024-07-08 18:30] LABS: Alanine Aminotransferase 24 U/L (12-78); Albumin Level 4.6 g/dl (3.5-5.0); Albumin/Globulin Ratio 1.2 (1.1-1.8); Alkaline Phosphatase 67 U/L (38-126); Anion Gap 9.8 mEq/L (5-15); Aspartate Amino Transferase 31 U/L (14-36); Bilirubin,Total 0.5 mg/dl (0.2-1.3); Blood Urea Nitrogen 18 mg/dl (7-17); Calcium 9.5 mg/dl (8.4-10.2); Carbon Dioxide 22 mmol/L (22.0-30.0); Chloride 109 mmol/L (98-107); Chol/HDL Ratio 4.7 (1-3.5); Cholesterol 280 mg/dl (140-200); Estimated Glomerular Filt Rate 73 ml/min (>60); GFR (African American) 88 ML/MIN (>60); Globulin 3.7 g/dL (1.3-3.2); Glucose 103 mg/dl (74-100); HDL Cholesterol 60 mg/dl (40-60); Potassium 4.8 mmoL/L (3.5-5.1); Sodium 136 mmol/L (136-145); Total Protein,Serum 8.3 g/dl (6.3-8.2); Triglycerides 278 mg/dl (30-150); VLDL Cholesterol 56 mg/dL (0-40)
[2024-07-08 19:04] LABS: Thyroid Stimulating Hormone 3.44 uIU/mL (0.465-4.68)
== END 2024-07-08 23:59 | disposition home or self-care (01) ==
LOC: LAB.DROPOF 07-11 10:52
PROVIDERS: PCP Family Medicine; Visit Provider Family Medicine
DX: K59.00 Constipation, unspecified (principal); K76.0 Fatty (change of) liver, not elsewhere classified; R68.89 Other general symptoms and signs; I10 Essential (primary) hypertension; E78.5 Hyperlipidemia, unspecified
CPT/HCPCS: 80053; 80061; 84443; 85025

== ENCOUNTER 2024-11-14 11:40 | Outpatient (CLI) | payer MEDICAID, SELFPAY ==
[2024-11-14 15:06] LABS: Hematocrit 32.5 % (37.0-47.0); Hemoglobin 10.2 g/dL (12.2-16.2); Immature Granulocytes % 0.3 %; Mean Corpuscular HGB Conc 31.4 g/dL (31.8-35.4); Mean Corpuscular Hemoglobin 25.6 pg (27.0-31.2); Mean Corpuscular Volume 81.5 fl (81-99); Nucleated Red Blood Cells % 0 %; Platelet Count 472 K/mm3 (142-424); Red Blood Count 3.99 M/mm3 (4.20-5.40); Red Cell Distribution Width-SD 51.5 fL; White Blood Count 8.7 K/mm3 (4.8-10.8)
[2024-11-14 16:04] LABS: Albumin Level 3.7 g/dl (3.5-5.0); Chloride 100 mmol/L (98-107); Sodium 135 mmol/L (136-145)
[2024-11-14 16:05] LABS: Potassium 4.3 mmoL/L (3.5-5.1)
[2024-11-14 16:07] LABS: Alanine Aminotransferase 20 U/L (12-78); Albumin/Globulin Ratio 0.8 (1.1-1.8); Alkaline Phosphatase 87 U/L (38-126); Anion Gap 15.3 mEq/L (5-15); Aspartate Amino Transferase 28 U/L (14-36); Bilirubin,Total 0.2 mg/dl (0.2-1.3); Blood Urea Nitrogen 25 mg/dl (7-17); Carbon Dioxide 24 mmol/L (22.0-30.0); Creatinine,Serum 1.00 mg/dl (0.52-1.04); Estimated Glomerular Filt Rate 56 ml/min (>60); GFR (African American) 68 ML/MIN (>60); Globulin 4.7 g/dL (1.3-3.2); Total Protein,Serum 8.4 g/dl (6.3-8.2)
[2024-11-14 16:08] LABS: Calcium 9.7 mg/dl (8.4-10.2); Glucose 109 mg/dl (74-100); HDL Cholesterol 50 mg/dl (40-60)
[2024-11-14 16:17] LABS: Cholesterol 349 mg/dl (140-200); Triglycerides 473 mg/dl (30-150)
[2024-11-15 05:33] LABS: Hepatitis B Surface Antigen Negative (Negative)
--- OUTSIDE RECORDS SUMMARY | 2024-11-15 15:51 | XMS_ITS | Encounter Summary ---
Author Organization Healthcare Address [address] [place] [address] Care Team Providers Care Corporate Risk Analyst Name Role Phone None, None Primary Care Provider Gavin Llanes MD Primary Care Provider [phone] Reason for Referral * Consultation (Routine) - Closed Specialty Diagnoses / Procedures Referred By Contana t Referred To Contact General, Endocrine & Minimally Invasive Surgery / General Surgery Diagnoses Hiatal hernia Gavin Portillo MD Phone: tel: fax: Charlie Ewing MD [address] [place] [phone] Phone: tel: fax: Referral ID Status Reason Start Date Expiration Date V isits Requested Visits Authorized [id number] Closed Specialty Services Required 09/18/2021 03/20/2023 1 1 Encounter Details Date Type Department Care Team (Late st Contact Info) Description 09/18/2021 [facility] [address] [place] [phone] Gavin Portillo MD [address] [place] [address] Hiatal hernia (Primary Dx) Social History Tobacco Use Types Packs/Day Years Used Date Smoking Tobacco: Never Smokeless Tobacco: Never Alcohol Use Standard Drinks/Week Comments Never 0 (1 standard drink = 0.6 oz pur e alcohol) Comments Unknown Sex and Gender Information Value Date Recorded Sex Assigned at Not on file Legal Sex Female 8:25 PM EDT Gender Identity Not on file Sexual Orientation Not on file documented as of this encounter Plan of Treatment Scheduled Referrals Name Type Priority Associated Diagnoses Order Schedule Ambulatory Referral to General Surgery ([facility]) Outpatient Referral Routine Hiatal hernia Expected: 09/18/2021 (Approximate), Expires: 12/19/2021 documented as of this encounter Visit Diagnoses Diagnosis Hiatal hernia- Primary Diaphragmatic hernia without mention of obstruction or gangrene documented in this encounter Care Teams Corporate Risk Analyst Relationship Specialty Start Date End Date None, None PCP - General 04/20/20 11/19/21 Gavin Portillo MD PCP - General 11/20/21 documented as of this encounter
--- OUTSIDE RECORDS SUMMARY | 2024-11-15 15:51 | XMS_ITS | Clinical Summary ---
Author Organization Healthcare Address [address] [place] [address] Care Team Providers Care Hydrogenation Still Operator Name Role Phone Gavin Portillo MD Primary Care Provider [phone] Allergies Active Allergy Reactions Criticality Noted Date Comments Aspirin Nausea And Vomiting 10/05/2009 Chlordiazepoxide-Clidini um Other - please document in the comment field Low 09/23/2011 Ibuprofen Hives Medium 11/08/2020 Peanut Oil Hives Medium 11/08/2020 Any peanut Penicillin G Hives Medium 09/23/2011 Shellfish Allergy Anaphylaxis High 11/08/2020 Medications acetaminophen-c odeine (Tylenol #3) 300-30 MG tablet 10/09/2020 Active amLODIPine (Norvasc) 10 MG tablet 10/23/2020 Active budesonide-form oterol (Symbicort) 160-4.5 MCG/ACT inhaler Inhale 2 puffs twice a day. Active traMADol (Ultram) 50 MG tablet 10/26/2020 Active rosuvastatin (Crestor) 20 MG tablet 10/23/2020 Active furosemide (Lasix) 20 MG tablet 10/23/2020 Active losartan (Cozaar) 100 MG tablet 10/23/2020 Active pantoprazole (ProtoNix) 40 MG EC tablet 10/23/2020 Active loperamide (Imodium) 2 MG capsule 10/23/2020 Active Breo Ellipta 200-25 MCG/INH inhaler 03/16/2020 Active nitroglycerin (Nitrostat) 0.[address] 0.4 mg under the tongue every 5 (five) minutes if needed for chest pain. Active phenytoin ER (Dilantin) 300 MG capsule 10/16/2021 Active rOPINIRole (Requip) 3 MG tablet 10/16/2021 Active levETIRAcetam (Keppra) 1000 MG tablet 10/16/2021 Active ProAir HFA 108 (90 Base) MCG/ACT inhaler 12/05/2021 Act wendy ipratropium-alb uterol (Duo-Neb) 0.5-2.5 mg/3 mL nebulizer solution 07/04/2022 Active Active Problems Problem Noted Date Diagnosed Date Severe obesity (BMI 35.0-39.9) with comorbidity 07/09/2022 Family History Medical History Relation Name Comments Cardiac Devices Pacemaker Present Brother Diabetes Brother Breast cancer Mother Cancer Mother Heart Problem Mother Seizures Mother Relation Name Status Comments Brother Mother Social History Tobacco Use Types Packs/Day Years Used Date Smoking Tobacco: Never Smokeless Tobacco: Never Tobacco Cessation:Counseling Given: Not Answered Alcohol Use Standard Drinks/Week Comments Never 0 (1 standard drink = 0.6 oz pur e alcohol) PHQ-2 Answer Date Recorded Patient Health Questionnaire-2 Score 0 07/09/2022 PHQ-2A Answer Date Recorded Patient Health Questionnaire-2 Score 0 07/09/2022 Comments Unknown Sex and Gender Information Value Date Recorded Sex Assigned at Not on file Legal Sex Female 8:25 PM EDT Gender Identity Not on file Sexual Orientation Not on file Last Filed Vital Signs Vital Sign Reading Time Taken Comments Blood Pressure 151/99 07/09/2022 2:11 PM EDT Pulse 85 07/09/2022 2:11 PM EDT Temperature 36.3 C (97.3 F) 07/09/2022 2:11 PM EDT Respiratory Rate 18 11/26/2021 1:49 PM EDT Oxygen Saturation 99% 11/26/2021 1:49 PM EDT Inhaled Oxygen Concentration - - Weight 96.6 kg (212 lb 15.4 oz) 07/09/2022 2:11 PM EDT Height 157 cm (5' 1.81 ) 07/09/2022 2:11 PM EDT Body Mass Index 39.19 07/09/2022 2:11 PM EDT Plan of Treatment Health Maintenance Due Date Last Done Comments [facility]-HIV Screening 1960 [facility]-Hepatitis C Screening 1960 [facility]-Infant/Child/Adol SDOH Screenings 1960 [facility]- SDOH Screenings 1980 [facility]-Adult SDOH Screenings 1980 [facility]-DTaP,Tdap,and Td Vaccine s (1 - Tdap) 1981 CT Colonography 06/29/2007 Colonoscopy 06/29/2007 FIT-DNA 06/29/2007 FIT 06/29/2007 FOBT 06/29/2007 Sigmoidoscopy 06/29/2007 [facility]-Colorectal Cancer Screening 06/29/2007 [facility]-Breast Cancer Screening 2012 [facility]-Pneumococcal Vaccine: 50 + Years (1 of 1 - PCV) 2012 [facility]-Zoster Vaccines (1 of 2) 2012 [facility]-Depression Screening 07/10/2023 07/09/2022 [id number] Vaccine (1 - 20 24-25 season) 2023 [facility]-Influenza Vaccine (#1) 2024 [facility]-RSV Vaccine: 60+ Years o r (1 - 1-dose 75+ series) 2037 [facility]-Diabetes: Hemoglobin A1C Discontinued 11/08/2020 [facility]-Obesity Intervention Completed 07/09/2022 HPV Vaccines Aged Out No longer eligi ble based on patient's age to complete this topic [facility]-HIB Vaccines Aged Out No longer e ligible based on patient's age to complete this topic [facility]-Hepatitis A Vaccines Aged Out No longer eligible based on patient's age to complete this topic [facility]-IPV Vaccines Aged Out No longer e ligible based on patient's age to complete this topic [facility]-Rotavirus Vaccines Aged Out No lo nger eligible based on patient's age to complete this topic Procedures Procedure Name Priority Date/Time Associated Diagnosis Comments POCT GLYCOSYLATED HEMOGLOBIN (HGB A1C) Routine 11/08/2020 12:32 PM EDT Diabetes mellitus type 2 in obese (CMS/HCC) from Last 3 Months or Most Recently Relevant to Health Maintenance Results * POCT glycosylated hemoglobin (Hb A1C) docked device (11/08/2020 12:32 PM EDT) POCT Hemoglobin A1C 6.1 4.4 - 6.6 % [facility] Blood Venous blood specimen / Unknown 11/08/2020 12:32 PM EDT us Elizabeth MARSHALL POINT OF CARE TEST ENTER/EDIT O RDERABLES Final Result [facility] [address] [place] [address] from Last 3 Months or Most Recently Relevant to Health Maintenance Insurance * Guarantor: Yi [employer] Account Type Relation to Patient Date of Phone Billing Address Personal/Family Self 1960 [address] [facility] [place] [address] [facility] [employer] [facility] MEDICAID Care Teams Hydrogenation Still Operator Relationship Specialty Start Date End Date Gavin Portillo MD PCP - General 11/20/21
--- OUTSIDE RECORDS SUMMARY | 2024-11-15 15:51 | XMS_ITS | Encounter Summary ---
Author Organization Healthcare Address [address] [place] [address] Care Team Providers Care Supervisor Plating And Point Assembly Name Role Phone Gavin Portillo MD Primary Care Provider [phone] Encounter Details Date Type Department Care Team (Late st Contact Info) Description 06/09/[address] [facility] [address] [place] [address] Charlie Ewing MD [facility]ly [facility] [address] [address] Social History Tobacco Use Types Packs/Day Years Used Date Smoking Tobacco: Never Smokeless Tobacco: Never Alcohol Use Standard Drinks/Week Comments Never 0 (1 standard drink = 0.6 oz pur e alcohol) PHQ-2 Answer Date Recorded Patient Health Questionnaire-2 Score 0 11/20/2021 Comments Unknown Sex and Gender Information Value Date Recorded Sex Assigned at Not on file Legal Sex Female 8:25 PM EDT Gender Identity Not on file Sexual Orientation Not on file documented as of this encounter Miscellaneous Notes * Telephone Encounter - Chiquita Gonzalez RN - 06/09/2022 4:02 PM EST Patient has not followed up after testing done previously. We scheduled an appt for follow up. Sekourayservando need additional testing at that time. * Telephone Encounter - Elizabeth Rivera - 06/09/2022 3:13 PM EST Patient Phone Message Reason for Call: Patient calling back to get scheduled for surgery or if she needs to see him again she was not sure. Best contact number and optimal time of day to reach caller: [phone] Note: Please do not reply to this message. Follow-up communication and further actions as a result of this message need to be communicated with the patient directly, if the patient is not active onMyChart. If the patient is active on MyChart, they will receive notification of the communication/outcome via [employer]. documented in this encounter Plan of Treatment Not on file documented as of this encounter Visit Diagnoses Not on filedocumented in this encounter Additional Health Concerns Assessment Noted Time A fall risk assessment has been complete d for the patient 11/20/2021 11:32 AM EDT documented as of this encounter Care Teams Supervisor Plating And Point Assembly Relationship Specialty Start Date End Date Gavin Portillo MD PCP - General 11/20/21 documented as of this encounter
--- OUTSIDE RECORDS SUMMARY | 2024-11-15 15:51 | XMS_ITS | Clinical Summary ---
Author Organization [facility] Address [address] [place] [address] Phone Care Team Providers Care Test Specialist Name Role Phone Gavin Portillo MD Primary Care Provider [phone] Allergies Active Allergy Reactions Criticality Noted Date Comments Aspirin Nausea And Vomiting 10/05/2009 Ibuprofen Penicillins Hives 10/05/2009 Shellfish Containing Products 2010 Medications phenytoin (DILANTIN) 100 mg ER capsule Take 100 mg by mouth 5 times daily. 2 in am 1 at lunch 1 at dinner 1 at bedtime Active esomeprazole (NEXIUM) 40 mg capsule Take by mouth daily. Active budesonide-form oterol (SYMBICORT) 160-4.5 mcg/Actuation inhaler Inhale 2 Puffs into the lungs 2 times daily. Active ALBUTEROL SULFATE (PROVENTIL HFA INHL) Inhale into the lungs. Active predniSONE (DELTASONE) 10 mg tablet pack Take by mouth daily. Days 1-4: 6 tabs PO QAM. Days 5-9: 4 tabs PO QAM. Days 9-12: 3 tabs PO QAM. 48 Tab 0 09/02/2011 Active famotidine (PEPCID) 40 mg tablet Take 1 Tab by mouth daily. 7 Tab 0 09/02/2011 Active Active Problems Problem Noted Date Diagnosed Date GERD (gastroesophageal reflux disease) 0 Dyspnea 10/04/2009 Obesity 10/04/2009 Bipolar disorder Seizure disorder Surgical History Surgery Date Site/Laterality Comments CHOLECYSTECTOMY HYSTERECTOMY 1991 GALLBLADDER SURGERY 09/08/08 CARPAL TUNNEL RELEASE Medical History Medical History Date Comments Bipolar affective (HCC) GI bleed Hernia of unspecified site o f abdominal cavity without mention of obstruction or gangrene Seizures (HCC) grand mal Depression Asthma Heartburn Bipolar disorder (HCC) Seizure disorder (HCC) Social History Tobacco Use Types Packs/Day Years Used Date Smoking Tobacco: Never Smokeless Tobacco: Never Alcohol Use Standard Drinks/Week Comments No 0 (1 standard drink = 0.6 oz pur e alcohol) Comments No Sex and Gender Information Value Date Recorded Sex Assigned at Not on file Legal Sex Female 4:04 PM EDT Gender Identity Not on file Sexual Orientation Not on file Obstetrics History Last Filed Vital Signs Vital Sign Reading Time Taken Comments Blood Pressure 131/82 09/02/2011 9:19 PM EDT Pulse 87 09/02/2011 9:19 PM EDT Temperature 36.6 C (97.8 F) 09/02/2011 5:36 PM EDT Respiratory Rate 14 09/02/2011 9:19 PM EDT Oxygen Saturation 98% 09/02/2011 9:19 PM EDT Inhaled Oxygen Concentration - - Weight 89.8 kg (198 lb) 09/02/2011 5:36 PM EDT Height 157.5 cm (5' 2 ) 09/02/2011 5:36 PM EDT Body Mass Index 36.21 09/02/2011 5:36 PM EDT Plan of Treatment Health Maintenance Due Date Last Done Comments Annual Wellness Exam 1965 DTaP/TDaP/Td (1 - Tdap) 1981 Cologuard 06/29/2007 Colon Cancer Screening 06/29/2007 Colonoscopy 06/29/2007 FIT 06/29/2007 Sigmoidoscopy 06/29/2007 Virtual Colonography 06/29/2007 Pneumococcal Vaccine 50+ (1 of 1 - PCV) 2012 Zoster (1 of 2) 2012 COVID-19 Vaccine ( - 2023-2 5 season) 2023 Influenza Vaccine (#1) 2024 Hepatitis C Screening Completed 10/05/2009 Hepatitis B Vaccine Aged Out No longe r eligible based on patient's age to complete this topic Meningococcal B Vaccine Aged Out No l onger eligible based on patient's age to complete this topic Procedures Procedure Name Priority Date/Time Associated Diagnosis Comments ACUTE HEPATITIS PANEL ESTEE 10/05/2009 5:16 PM EDT from Last 3 Months or Most Recently Relevant to Health Maintenance Results * ACUTE HEPATITIS PANEL (10/05/2009 5:16 PM EDT) Hep Bs Ag Negative Negative [facility] Hep B Core IgM Negative Negative [facility] Hep A IgM Negative Negative [facility] Hep C Ab Negative Negative [facility] Blood specimen (specimen) UPPER LIMB STRUCTURE / Unknown 10/05/2009 5:16 PM EDT 10/05/2009 9:17 PM EDT us Xavier Miranda MD CHEMISTRY ORDERABLES Edited [facility] [address] [place] [address] from Last 3 Months or Most Recently Relevant to Health Maintenance Care Teams Test Specialist Relationship Specialty Start Date End Date Gavin Portillo MD PCP - General Family Medicine 04/16/15
== END 2024-11-14 23:59 | disposition home or self-care (01) ==
LOC: LAB.DROPOF 11-15 15:43
PROVIDERS: PCP Family Medicine; Visit Provider Family Medicine
DX: K76.0 Fatty (change of) liver, not elsewhere classified (principal); E78.5 Hyperlipidemia, unspecified; E66.9 Obesity, unspecified; I10 Essential (primary) hypertension; Z11.59 Encounter for screening for other viral diseases
CPT/HCPCS: 80053; 80061; 85025; 87340